=== PATIENT | female | born 1955 | race Two or more races ===

== ENCOUNTER 2023-02-08 07:59 | Outpatient (CLI) | payer OTHER | END 2023-02-08 08:00 | disposition home or self-care (01) | LOC: LAB 07:59 | DX: C50.112 Malignant neoplasm of central portion of left female breast (principal) ==

== ENCOUNTER 2023-02-14 07:48 | Outpatient (CLI) | payer OTHER | END 2023-02-14 10:19 | disposition home or self-care (01) | LOC: NUCLEAR 07:48 | DX: C50.112 Malignant neoplasm of central portion of left female breast (principal) ==

== ENCOUNTER 2023-03-20 07:40 | Outpatient (CLI) | payer OTHER | END 2023-03-20 07:41 | disposition home or self-care (01) | LOC: LAB 07:40 | DX: C50.112 Malignant neoplasm of central portion of left female breast (principal); R11.2 Nausea with vomiting, unspecified ==

== ENCOUNTER 2023-04-04 07:21 | Outpatient (CLI) | payer OTHER | END 2023-04-04 07:22 | disposition home or self-care (01) | LOC: LAB 07:21 | DX: C50.112 Malignant neoplasm of central portion of left female breast (principal); R11.2 Nausea with vomiting, unspecified; D70.1 Agranulocytosis secondary to cancer chemotherapy ==

== ENCOUNTER 2023-05-24 07:30 | Outpatient (CLI) | payer OTHER | END 2023-05-24 07:35 | disposition home or self-care (01) | LOC: LAB 07:30 | DX: C50.112 Malignant neoplasm of central portion of left female breast (principal); R11.2 Nausea with vomiting, unspecified; D70.1 Agranulocytosis secondary to cancer chemotherapy ==

== ENCOUNTER 2023-06-07 06:45 | Outpatient (CLI) | payer OTHER | END 2023-06-07 06:49 | disposition home or self-care (01) | LOC: LAB 06:45 | DX: C50.112 Malignant neoplasm of central portion of left female breast (principal); R11.2 Nausea with vomiting, unspecified; D70.1 Agranulocytosis secondary to cancer chemotherapy ==

== ENCOUNTER 2023-06-14 08:42 | Outpatient (CLI) | payer OTHER | END 2023-06-14 08:47 | disposition home or self-care (01) | LOC: SONOGRAMA 08:42 | DX: C50.112 Malignant neoplasm of central portion of left female breast (principal); R11.2 Nausea with vomiting, unspecified; D70.1 Agranulocytosis secondary to cancer chemotherapy ==

== ENCOUNTER 2023-07-18 07:25 | Outpatient (CLI) | payer OTHER ==
[2023-07-18 08:26] LABS: HEMATOCRIT 34.7 % (36.0-45.00); HEMOGLOBIN 11.3 g/dL (12.0-15.00); MEAN CELL VOLUME 92.5 fL (80.00-100.00); MEAN CORPUSCULAR HEMOGLOBIN 30.2 pg (27.00-32.0); MEAN CORPUSCULAR HGB CONC 32.6 g/dl (32.0-36.0); PLATELET COUNT 210 K/uL (150-450); RED BLOOD COUNT 3.75 M/uL (4.00-6.00); RED CELL DISTRIBUTION WIDTH 16.7 % (11.5-14.5)
== END 2023-07-18 07:30 | disposition home or self-care (01) ==
LOC: LAB 07:25
DX: C50.112 Malignant neoplasm of central portion of left female breast (principal); R11.2 Nausea with vomiting, unspecified; D70.1 Agranulocytosis secondary to cancer chemotherapy

== ENCOUNTER → 2023-08-22 07:24 | Outpatient (CLI) | payer OTHER ==
[2023-08-22 08:02] LABS: HEMATOCRIT 37.3 % (36.0-45.00); HEMOGLOBIN 12.2 g/dL (12.0-15.00); MEAN CORPUSCULAR HEMOGLOBIN 29.8 pg (27.00-32.0); MEAN CORPUSCULAR HGB CONC 32.7 g/dl (32.0-36.0); PLATELET COUNT 184 K/uL (150-450); RED CELL DISTRIBUTION WIDTH 15.3 % (11.5-14.5)
== END | disposition home or self-care (01) ==
LOC: LAB 07:24
DX: C50.112 Malignant neoplasm of central portion of left female breast (principal); R11.2 Nausea with vomiting, unspecified; D70.1 Agranulocytosis secondary to cancer chemotherapy

== ENCOUNTER → 2023-10-11 07:42 | Outpatient (CLI) | payer OTHER ==
[2023-10-11 08:50] LABS: HEMATOCRIT 39.8 % (36.0-45.00); HEMOGLOBIN 13.1 g/dL (12.0-15.00); MEAN CELL VOLUME 88.6 fL (80.00-100.00); MEAN CORPUSCULAR HEMOGLOBIN 29.2 pg (27.00-32.0); PLATELET COUNT 150 K/uL (150-450); RED BLOOD COUNT 4.49 M/uL (4.00-6.00); RED CELL DISTRIBUTION WIDTH 14.8 % (11.5-14.5)
== END | disposition home or self-care (01) ==
LOC: LAB 07:42
DX: C50.112 Malignant neoplasm of central portion of left female breast (principal); R11.2 Nausea with vomiting, unspecified; D70.1 Agranulocytosis secondary to cancer chemotherapy

== ENCOUNTER 2023-10-24 07:18 | Emergency (ER) | payer OTHER ==
[~2023-10-24] VITALS: Ht 165.1 cm; Wt 47.2 kg
[2023-10-24] MEDS ORDERED: LEVOTHYROXINE150 MCG PO (07:31)
[2023-10-24] MEDS ORDERED: GABAPENTIN300 M2 PO (07:31)
[2023-10-24] MEDS ORDERED: PERJETA420 MG/14 IV (07:32)
[2023-10-24] MEDS ORDERED: ONDANSETRON4 MG/2 M5 IJ (07:32)
[2023-10-24] MEDS ORDERED: FAMOTIDINE40 MG PO (07:32)
[2023-10-24 09:33] LABS: HEMATOCRIT 44.2 % (36.0-45.00); HEMOGLOBIN 14.6 g/dL (12.0-15.00); MEAN CORPUSCULAR HEMOGLOBIN 29.4 pg (27.00-32.0); PLATELET COUNT 179 K/uL (150-450); RED BLOOD COUNT 4.96 M/uL (4.00-6.00); RED CELL DISTRIBUTION WIDTH 14.9 % (11.5-14.5)
[2023-10-24 10:01] LABS: INR 0.98; PARTIAL THROMBOPLASTIN TIME 28.3 SECONDS (22.0-34.0); PROTHROMBIN TIME 10.3 SECONDS (9.0-11.5)
[2023-10-24 10:10] LABS: URINE APPEARANCE Clear; URINE BILIRRUBIN Negative (NEGATIVE); URINE BLOOD Trace; URINE COLOR Yellow; URINE GLUCOSE Negative (NEGATIVE); URINE LEUKOCYTE Negative; URINE NITRATE Negative; URINE PROTEIN Negative (NEGATIVE); URINE UROBILINOGEN 0.2 E.U./dl
[2023-10-24 10:13] LABS: ALBUMIN 3.9 gm/dL (3.4-5.0); BILIRUBIN TOTAL 0.52 mg/dL (0.3-1.2); CALCIUM 9.6 mg/dL (8.5-10.1); CREATININE SERUM 0.62 mg/dL (0.55-1.02); GFR 95.16; GLOBULINA 4.4 G/DL (2.4-3.5); POTASSIUM 3.89 mEq/L (3.5-5.1); TOTAL PROTEIN 8.3 gm/dL (6.4-8.2)
[2023-10-24 10:14] LABS: URINE BACTERIA 11.3 uL (0.0-1933); URINE RBC 5.3 uL (0.0-20.8)
[2023-10-24 10:17] LABS: URINE EPITHELIAL CELLS 0.1 uL (0.0-38.8); URINE WBC 1.3 uL (0.0-23.2)
== END 2023-10-24 10:40 | disposition home or self-care (01) ==
LOC: ER 07:19
PROVIDERS: General Practice
DX: R10.9 Unspecified abdominal pain (principal); Z88.8 Allergy status to other drugs, medicaments and biological substances; C50.919 Malignant neoplasm of unspecified site of unspecified female breast; E03.9 Hypothyroidism, unspecified; Z85.038 Personal history of other malignant neoplasm of large intestine; R19.7 Diarrhea, unspecified

== ENCOUNTER → 2023-11-09 08:10 | Outpatient (CLI) | payer OTHER ==
[~2023-11-09 08:10] MED LIST: FAMOTIDINE40 MG PO; GABAPENTIN300 M2 PO; LEVOTHYROXINE150 MCG PO; ONDANSETRON4 MG/2 M5 IJ; PERJETA420 MG/14 IV
[2023-11-09 08:45] LABS: HEMATOCRIT 39.9 % (36.0-45.00); HEMOGLOBIN 13.1 g/dL (12.0-15.00); MEAN CELL VOLUME 86.9 fL (80.00-100.00); MEAN CORPUSCULAR HEMOGLOBIN 28.6 pg (27.00-32.0); MEAN CORPUSCULAR HGB CONC 32.9 g/dl (32.0-36.0); PLATELET COUNT 166 K/uL (150-450); RED BLOOD COUNT 4.59 M/uL (4.00-6.00); RED CELL DISTRIBUTION WIDTH 15.7 % (11.5-14.5)
[2023-11-09 09:01] LABS: CALCIUM 9.1 mg/dL (8.5-10.1); CREATININE SERUM 0.53 mg/dL (0.55-1.02); GFR 114.04; POTASSIUM 4.25 mEq/L (3.5-5.1)
== END | disposition home or self-care (01) ==
LOC: LAB 08:10
DX: C50.112 Malignant neoplasm of central portion of left female breast (principal); R11.2 Nausea with vomiting, unspecified; D70.1 Agranulocytosis secondary to cancer chemotherapy

== ENCOUNTER 2023-11-23 08:50 | Outpatient (CLI) | payer OTHER | END 2023-11-23 14:30 | disposition home or self-care (01) | LOC: LAB 08:50 | DX: R19.7 Diarrhea, unspecified (principal) ==

== ENCOUNTER → 2023-12-27 07:26 | Outpatient (CLI) | payer OTHER ==
[2023-12-27 08:29] LABS: HEMATOCRIT 40.9 % (36.0-45.00); HEMOGLOBIN 13.8 g/dL (12.0-15.00); MEAN CELL VOLUME 85.4 fL (80.00-100.00); MEAN CORPUSCULAR HEMOGLOBIN 28.9 pg (27.00-32.0); MEAN CORPUSCULAR HGB CONC 33.9 g/dl (32.0-36.0); RED BLOOD COUNT 4.79 M/uL (4.00-6.00); RED CELL DISTRIBUTION WIDTH 15.3 % (11.5-14.5)
[2023-12-27 08:51] LABS: PLATELET COUNT 76 K/uL (150-450)
[2023-12-27 09:17] LABS: ALBUMIN 3.2 gm/dL (3.4-5.0); BILIRUBIN TOTAL 0.34 mg/dL (0.3-1.2); CALCIUM 8.2 mg/dL (8.5-10.1); CREATININE SERUM 0.6 mg/dL (0.55-1.02); GFR 98.83; GLOBULINA 3.5 G/DL (2.4-3.5); POTASSIUM 3.68 mEq/L (3.5-5.1); TOTAL PROTEIN 6.7 gm/dL (6.4-8.2)
== END | disposition home or self-care (01) ==
LOC: LAB 07:26
DX: C50.112 Malignant neoplasm of central portion of left female breast (principal); R11.2 Nausea with vomiting, unspecified; D70.1 Agranulocytosis secondary to cancer chemotherapy

== ENCOUNTER 2023-12-30 12:37 | Outpatient (CLI) | payer OTHER | END 2023-12-30 23:00 | disposition home or self-care (01) | LOC: LAB 12:37 | DX: C50.112 Malignant neoplasm of central portion of left female breast (principal); R19.7 Diarrhea, unspecified ==

== ENCOUNTER → 2024-04-23 06:55 | Outpatient (CLI) | payer OTHER ==
[2024-04-23 07:46] LABS: HEMATOCRIT 39.1 % (36.0-45.00); HEMOGLOBIN 13.1 g/dL (12.0-15.00); MEAN CORPUSCULAR HEMOGLOBIN 29.4 pg (27.00-32.0); MEAN CORPUSCULAR HGB CONC 33.4 g/dl (32.0-36.0); PLATELET COUNT 168 K/uL (150-450); RED BLOOD COUNT 4.45 M/uL (4.00-6.00)
== END | disposition home or self-care (01) ==
LOC: LAB 06:55
DX: C50.112 Malignant neoplasm of central portion of left female breast (principal)

== ENCOUNTER 2024-05-20 07:20 | Outpatient (CLI) | payer OTHER ==
[2024-05-20 07:54] LABS: HEMATOCRIT 39.4 % (36.0-45.00); MEAN CELL VOLUME 88.7 fL (80.00-100.00); MEAN CORPUSCULAR HEMOGLOBIN 29.3 pg (27.00-32.0); MEAN CORPUSCULAR HGB CONC 33.1 g/dl (32.0-36.0); RED BLOOD COUNT 4.44 M/uL (4.00-6.00); RED CELL DISTRIBUTION WIDTH 14.8 % (11.5-14.5)
[2024-05-20 07:59] LABS: PLATELET COUNT 109 K/uL (150-450)
[2024-05-20 09:45] LABS: FREE TRIODOTIRONINE 1.71 pg/ml (2.18-3.98); T4 FREE 1.19 NG/ML (0.76-1.46); TSH 1.35 uIU/mL (0.358-3.74)
== END 2024-05-20 07:34 | disposition home or self-care (01) ==
LOC: LAB 07:20
DX: C50.112 Malignant neoplasm of central portion of left female breast (principal)

== ENCOUNTER 2024-07-02 07:07 | Outpatient (CLI) | payer OTHER ==
[2024-07-02 08:00] LABS: HEMOGLOBIN 12.6 g/dL (12.0-15.00); MEAN CELL VOLUME 89.1 fL (80.00-100.00); MEAN CORPUSCULAR HEMOGLOBIN 29.6 pg (27.00-32.0); MEAN CORPUSCULAR HGB CONC 33.2 g/dl (32.0-36.0); PLATELET COUNT 146 K/uL (150-450); RED BLOOD COUNT 4.27 M/uL (4.00-6.00); RED CELL DISTRIBUTION WIDTH 15.6 % (11.5-14.5)
[2024-07-02 09:40] LABS: PLT IN CITRATE 140 K/uL (150-450)
== END 2024-07-02 07:11 | disposition home or self-care (01) ==
LOC: LAB 07:07
DX: C50.112 Malignant neoplasm of central portion of left female breast (principal)

== ENCOUNTER → 2024-10-10 07:21 | Outpatient (CLI) | payer OTHER ==
[2024-10-10 07:59] LABS: HEMATOCRIT 38.6 % (36.0-45.00); MEAN CELL VOLUME 89.4 fL (80.00-100.00); MEAN CORPUSCULAR HEMOGLOBIN 30.2 pg (27.00-32.0); MEAN CORPUSCULAR HGB CONC 33.7 g/dl (32.0-36.0); PLATELET COUNT 149 K/uL (150-450); RED BLOOD COUNT 4.31 M/uL (4.00-6.00); RED CELL DISTRIBUTION WIDTH 14.4 % (11.5-14.5)
[2024-10-10 09:28] LABS: ALBUMIN 3.1 gm/dL (3.4-5.0); BILIRUBIN TOTAL 0.45 mg/dL (0.3-1.2); CALCIUM 8.9 mg/dL (8.5-10.1); CHOL HDL RATIO 1.9 (0-5.0); CREATININE SERUM 0.41 mg/dL (0.55-1.02); FREE TRIODOTIRONINE 1.67 pg/ml (2.18-3.98); GFR 152.92; GLOBULINA 3.4 G/DL (2.4-3.5); POTASSIUM 3.91 mEq/L (3.5-5.1); T4 FREE 1.29 NG/ML (0.76-1.46); TOTAL PROTEIN 6.5 gm/dL (6.4-8.2); TSH 2.63 uIU/mL (0.358-3.74)
== END | disposition home or self-care (01) ==
LOC: LAB 07:21
DX: C50.112 Malignant neoplasm of central portion of left female breast (principal)

== ENCOUNTER → 2024-12-01 | Emergency (ER) | payer OTHER ==
[~2024-12-01] VITALS: Ht 152.4 cm; Wt 49.9 kg
== END | disposition left against medical advice (07) ==
LOC: ER 13:52
DX: S60.011A Contusion of right thumb without damage to nail, initial encounter (principal); W22.8XXA Striking against or struck by other objects, initial encounter; Y93.89 Activity, other specified; Y92.018 Other place in single-family (private) house as the place of occurrence of the external cause; Z88.8 Allergy status to other drugs, medicaments and biological substances

== ENCOUNTER 2024-12-02 15:09 | Outpatient (CLI) | payer OTHER | END 2024-12-02 15:12 | disposition home or self-care (01) | LOC: RAD 15:09 | DX: S69.91XA Unspecified injury of right wrist, hand and finger(s), initial encounter (principal) ==

== ENCOUNTER 2024-12-06 14:17 | Emergency (ER) | payer OTHER ==
[~2024-12-06] VITALS: Ht 167.6 cm; Wt 68.0 kg
== END 2024-12-06 17:11 | disposition home or self-care (01) ==
LOC: ER 14:20
DX: S62.231A Other displaced fracture of base of first metacarpal bone, right hand, initial encounter for closed fracture (principal); X58.XXXA Exposure to other specified factors, initial encounter; Y93.89 Activity, other specified; Y92.89 Other specified places as the place of occurrence of the external cause; Y99.8 Other external cause status; E03.8 Other specified hypothyroidism; Z88.6 Allergy status to analgesic agent

== ENCOUNTER 2024-12-31 06:47 | Outpatient (CLI) | payer OTHER ==
[2024-12-31 07:46] LABS: HEMOGLOBIN 12.9 g/dL (12.0-15.00); MEAN CELL VOLUME 91.1 fL (80.00-100.00); MEAN CORPUSCULAR HEMOGLOBIN 29.4 pg (27.00-32.0); MEAN CORPUSCULAR HGB CONC 32.3 g/dl (32.0-36.0); RED BLOOD COUNT 4.39 M/uL (4.00-6.00); RED CELL DISTRIBUTION WIDTH 14.6 % (11.5-14.5)
[2024-12-31 07:51] LABS: PLATELET COUNT 142 K/uL (150-450)
[2024-12-31 08:30] LABS: CREATININE SERUM 0.46 mg/dL (0.55-1.02); GFR 133.91; POTASSIUM 4.33 mEq/L (3.5-5.1)
== END 2024-12-31 06:57 | disposition home or self-care (01) ==
LOC: LAB 06:47
DX: C50.112 Malignant neoplasm of central portion of left female breast (principal)

== ENCOUNTER 2024-12-31 07:37 | Outpatient (CLI) | payer OTHER | END 2024-12-31 07:39 | disposition home or self-care (01) | LOC: RAD 07:37 | DX: S62.609A Fracture of unspecified phalanx of unspecified finger, initial encounter for closed fracture (principal); M19.049 Primary osteoarthritis, unspecified hand ==

== ENCOUNTER 2025-01-07 07:35 | Outpatient (CLI) | payer OTHER ==
[2025-01-07] MEDS ORDERED: IBANDRONATE SO150 MG PO (11:14)
== END 2025-01-07 07:40 | disposition home or self-care (01) ==
LOC: TOM 07:35
DX: R19.4 Change in bowel habit (principal)

== ENCOUNTER 2025-01-07 10:57 | Inpatient (IN) | payer OTHER ==
[~2025-01-07] VITALS: Ht 152.4 cm; Wt 49.9 kg
[2025-01-07] MEDS ORDERED: IBANDRONATE SO150 MG PO (11:14)
[2025-01-07] MEDS ORDERED: FAMOTIDINE/PF 20 MG/2 ML VIAL ONE (11:38)
[2025-01-07] MEDS ORDERED: PIPERACILLIN/TAZOBACTAM SODIUM 3.375 GM VIAL IV ONE ×3 (11:38→18:50)
[2025-01-07] MEDS ORDERED: FAMOtidine 10 MG/ML (4ML VIAL) IV ONE (11:45)
[2025-01-07 12:03] LABS: HEMATOCRIT 39.9 % (36.0-45.00); HEMOGLOBIN 13.1 g/dL (12.0-15.00); MEAN CELL VOLUME 90.7 fL (80.00-100.00); MEAN CORPUSCULAR HEMOGLOBIN 29.7 pg (27.00-32.0); MEAN CORPUSCULAR HGB CONC 32.8 g/dl (32.0-36.0); PLATELET COUNT 155 K/uL (150-450); RED CELL DISTRIBUTION WIDTH 14.4 % (11.5-14.5)
[2025-01-07 12:09] LABS: URINE APPEARANCE Cloudy; URINE BILIRRUBIN Negative (NEGATIVE); URINE BLOOD Large; URINE COLOR Yellow; URINE GLUCOSE Negative (NEGATIVE); URINE KETONE Negative (NEGATIVE); URINE LEUKOCYTE Moderate; URINE NITRATE Positive; URINE PROTEIN Negative (NEGATIVE); URINE UROBILINOGEN 0.2 E.U./dl
[2025-01-07 12:13] LABS: URINE EPITHELIAL CELLS 20.4 uL (0.0-38.8); URINE RBC 1305.2 uL (0.0-20.8); URINE WBC 153.5 uL (0.0-23.2)
[2025-01-07 12:34] LABS: ALBUMIN 3.1 gm/dL (3.4-5.0); BILIRUBIN TOTAL 0.65 mg/dL (0.3-1.2); CALCIUM 8.5 mg/dL (8.5-10.1); CREATININE SERUM 0.68 mg/dL (0.55-1.02); GFR 85.29; INR 1.02; PARTIAL THROMBOPLASTIN TIME 25.1 SECONDS (22.0-34.0); POTASSIUM 3.28 mEq/L (3.5-5.1); PROTHROMBIN TIME 11.1 SECONDS (9.0-11.5); TOTAL PROTEIN 7.1 gm/dL (6.4-8.2)
[2025-01-07 13:11] LABS: URINE BACTERIA > 9821.5 uL (0.0-1933); URINE CAST 0.44 uL (0.0-1.40)
[2025-01-07] MEDS ORDERED: METRONIDAZOLE/SODIUM CHLORIDE 100 ML IV SCH (18:37)
[2025-01-07] MEDS ORDERED: PIPERACILLIN/TAZOBACTAM SODIUM 3.375 GM in DEXTROSE 5 % IN WATER 100 ML IV SCH (18:37)
[2025-01-07] MEDS ORDERED: FAMOTIDINE/PF 20 MG in 0.9 % SODIUM CHLORIDE 8 ML IV PUSH SCH (18:38)
[2025-01-07] MEDS ORDERED: ONDANSETRON HCL 4 MG in 0.9 % SODIUM CHLORIDE 50 ML IV PRN (18:45)
[2025-01-07] MEDS ORDERED: 0.9 % SODIUM CHLORIDE 1,000 ML IV SCH (18:45)
[2025-01-07] MEDS ORDERED: METRONIDAZOLE/SODIUM CHLORIDE 500 MG/100 ML PIGGYBACK IV ONE (18:50)
[2025-01-07 19:37] LABS: MAGNESIUM 2.1 mg/dL (1.8-2.4); PHOSPHOROUS 2.3 mg/dL (2.5-4.9)
[2025-01-07] MEDS ORDERED: MORPHINE SULFATE 2 MG/ML CARTRIDGE IV SCH (20:00)
[2025-01-07 21:30] VITALS: BP 152/74; O2SAT 97
[2025-01-08 00:24] VITALS: BP 118/72; O2SAT 99
[2025-01-08] MEDS ORDERED: LEVOTHYROXINE SODIUM 150 MCG TABLET PO SCH (06:00)
[2025-01-08 08:00] VITALS: BP 115/68; O2SAT 96
[2025-01-08] MEDS ORDERED: POTASSIUM CHLORIDE 20MEQ/100ML H2O PB IV NR (10:00)
[2025-01-08] MEDS ORDERED: ATORVASTATIN CALCIUM 20 MG TABLET PO NR (11:00)
[2025-01-08] MEDS ORDERED: ENOXAPARIN SODIUM 40 MG/0.4 ML SYRINGE SUBCUTANEO NR (11:00)
[2025-01-08 16:59] LABS: ALBUMIN 2.9 gm/dL (3.4-5.0); BILIRUBIN TOTAL 1.15 mg/dL (0.3-1.2); CALCIUM 8.5 mg/dL (8.5-10.1); CREATININE SERUM 0.48 mg/dL (0.55-1.02); GFR 127.49; GLOBULINA 3.2 G/DL (2.4-3.5); POTASSIUM 3.62 mEq/L (3.5-5.1); TOTAL PROTEIN 6.1 gm/dL (6.4-8.2)
[2025-01-08 17:00] VITALS: BP 123/75; O2SAT 99
[2025-01-08] MEDS ORDERED: AMINO ACIDS 4.25 %/DEXTROSE 5% 1,000 ML PERIFERAL SCH (17:00)
[2025-01-08] MEDS ORDERED: AA 5 % NO.6/DEXTROSE 15 % 1,000 ML CENTRAL SCH (17:00)
[2025-01-08] MEDS ORDERED: NAPH,MB-DB/K PH,MBDB 1 PKT PACKET PO SCH (17:00)
[2025-01-08 21:47] LABS: HEMATOCRIT 38.6 % (36.0-45.00); HEMOGLOBIN 12.8 g/dL (12.0-15.00); MEAN CELL VOLUME 89.5 fL (80.00-100.00); MEAN CORPUSCULAR HEMOGLOBIN 29.6 pg (27.00-32.0); MEAN CORPUSCULAR HGB CONC 33.1 g/dl (32.0-36.0); PLATELET COUNT 157 K/uL (150-450); RED BLOOD COUNT 4.31 M/uL (4.00-6.00); RED CELL DISTRIBUTION WIDTH 14.7 % (11.5-14.5)
[2025-01-08 22:07] LABS: CALCIUM 8.4 mg/dL (8.5-10.1); CREATININE SERUM 0.46 mg/dL (0.55-1.02); GFR 133.91; PHOSPHOROUS 2.5 mg/dL (2.5-4.9); POTASSIUM 3.55 mEq/L (3.5-5.1)
[2025-01-09 00:57] VITALS: BP 123/82; O2SAT 100
[2025-01-09 07:54] LABS: HEMATOCRIT 38.6 % (36.0-45.00); HEMOGLOBIN 12.7 g/dL (12.0-15.00); MEAN CORPUSCULAR HEMOGLOBIN 29.9 pg (27.00-32.0); MEAN CORPUSCULAR HGB CONC 32.9 g/dl (32.0-36.0); PLATELET COUNT 140 K/uL (150-450); RED BLOOD COUNT 4.24 M/uL (4.00-6.00); RED CELL DISTRIBUTION WIDTH 14.8 % (11.5-14.5)
[2025-01-09 08:24] LABS: ob POSITIVE (NEGATIVE)
[2025-01-09] MEDS ORDERED: ENOXAPARIN SODIUM 40 MG/0.4 ML SYRINGE SUBCUTANEO SCH (09:00)
[2025-01-09] MEDS ORDERED: ATORVASTATIN CALCIUM 20 MG TABLET PO SCH (09:00)
[2025-01-09 09:07] LABS: ALBUMIN 2.9 gm/dL (3.4-5.0); BILIRUBIN TOTAL 1.02 mg/dL (0.3-1.2); CALCIUM 8.5 mg/dL (8.5-10.1); CREATININE SERUM 0.52 mg/dL (0.55-1.02); GFR 116.24; GLOBULINA 3.1 G/DL (2.4-3.5); POTASSIUM 3.72 mEq/L (3.5-5.1)
[2025-01-09 11:15] VITALS: BP 98/60; O2SAT 95
[2025-01-09 16:00] VITALS: BP 125/68; O2SAT 95
[2025-01-10 00:32] VITALS: BP 93/57; O2SAT 100
[2025-01-10 08:00] VITALS: BP 132/74; O2SAT 100
[2025-01-10 09:31] LABS: HEMATOCRIT 35.9 % (36.0-45.00); HEMOGLOBIN 11.8 g/dL (12.0-15.00); MEAN CELL VOLUME 90.9 fL (80.00-100.00); MEAN CORPUSCULAR HEMOGLOBIN 29.9 pg (27.00-32.0); MEAN CORPUSCULAR HGB CONC 32.9 g/dl (32.0-36.0); PLATELET COUNT 131 K/uL (150-450); RED BLOOD COUNT 3.95 M/uL (4.00-6.00); RED CELL DISTRIBUTION WIDTH 14.4 % (11.5-14.5)
[2025-01-10 09:57] LABS: ALBUMIN 2.5 gm/dL (3.4-5.0); BILIRUBIN TOTAL 0.64 mg/dL (0.3-1.2); CREATININE SERUM 0.39 mg/dL (0.55-1.02); GFR 162.01; GLOBULINA 2.9 G/DL (2.4-3.5); POTASSIUM 3.68 mEq/L (3.5-5.1); TOTAL PROTEIN 5.4 gm/dL (6.4-8.2)
[2025-01-10 15:00] VITALS: BP 131/77; O2SAT 100
[2025-01-11 00:38] VITALS: BP 103/62; O2SAT 100
[2025-01-11 07:47] LABS: HEMATOCRIT 35.9 % (36.0-45.00); HEMOGLOBIN 11.9 g/dL (12.0-15.00); MEAN CELL VOLUME 90.5 fL (80.00-100.00); MEAN CORPUSCULAR HEMOGLOBIN 30.1 pg (27.00-32.0); MEAN CORPUSCULAR HGB CONC 33.3 g/dl (32.0-36.0); PLATELET COUNT 134 K/uL (150-450); RED BLOOD COUNT 3.97 M/uL (4.00-6.00)
[2025-01-11 08:26] LABS: ALBUMIN 2.5 gm/dL (3.4-5.0); BILIRUBIN TOTAL 0.53 mg/dL (0.3-1.2); CALCIUM 8.3 mg/dL (8.5-10.1); CREATININE SERUM 0.42 mg/dL (0.55-1.02); GFR 148.73; GLOBULINA 3.3 G/DL (2.4-3.5); POTASSIUM 3.81 mEq/L (3.5-5.1); TOTAL PROTEIN 5.8 gm/dL (6.4-8.2)
[2025-01-11 08:53] VITALS: BP 146/89; O2SAT 100
[2025-01-11 16:00] VITALS: BP 137/75; O2SAT 96
[2025-01-12 00:10] VITALS: BP 144/64; O2SAT 98
[2025-01-12 07:34] LABS: HEMATOCRIT 33.4 % (36.0-45.00); HEMOGLOBIN 11.1 g/dL (12.0-15.00); MEAN CELL VOLUME 90.1 fL (80.00-100.00); MEAN CORPUSCULAR HGB CONC 33.3 g/dl (32.0-36.0); RED BLOOD COUNT 3.71 M/uL (4.00-6.00); RED CELL DISTRIBUTION WIDTH 13.9 % (11.5-14.5)
[2025-01-12 07:42] LABS: PLATELET COUNT 121 K/uL (150-450)
[2025-01-12 07:50] LABS: ALBUMIN 2.1 gm/dL (3.4-5.0); BILIRUBIN TOTAL 0.31 mg/dL (0.3-1.2); CALCIUM 7.6 mg/dL (8.5-10.1); CREATININE SERUM 0.34 mg/dL (0.55-1.02); GFR 189.8; GLOBULINA 2.5 G/DL (2.4-3.5); TOTAL PROTEIN 4.6 gm/dL (6.4-8.2)
[2025-01-12 08:41] LABS: POTASSIUM 2.94 mEq/L (3.5-5.1)
[2025-01-12 08:47] VITALS: BP 126/80; O2SAT 100
[2025-01-12] MEDS ORDERED: POTASSIUM CHLORIDE IN WATER 100 ML IV NR (12:30)
[2025-01-12] MEDS ORDERED: SODIUM CHLORIDE 0.45 % 1,000 ML IV SCH (12:30)
[2025-01-12] MEDS ORDERED: POTASSIUM CHLORIDE IN WATER 40 MEQ/100 ML PIGGYBAG IV NR (14:45)
[2025-01-12 16:12] VITALS: BP 114/72; O2SAT 100
[2025-01-12] MEDS ORDERED: POTASSIUM CHLORIDE 20MEQ/100ML H2O PB IV SCH (22:10)
[2025-01-12 23:25] LABS: PLATELET COUNT 140 K/uL (150-450)
[2025-01-12 23:38] LABS: PLT IN CITRATE 62 K/uL (150-450)
[2025-01-12 23:57] LABS: COL ADP 94 SECONDS (56-102); COL EPI 139 SECONDS (82-175)
[2025-01-13 00:04] LABS: ALBUMIN 2.5 gm/dL (3.4-5.0); CALCIUM 7.9 mg/dL (8.5-10.1); CREATININE SERUM 0.32 mg/dL (0.55-1.02); GFR 203.56; POTASSIUM 3.02 mEq/L (3.5-5.1)
[2025-01-13 00:58] LABS: PHOSPHOROUS 1.5 mg/dL (2.5-4.9)
[2025-01-13 08:00] VITALS: BP 148/70; O2SAT 97
[2025-01-13 08:40] LABS: HEMATOCRIT 34.8 % (36.0-45.00); HEMOGLOBIN 11.8 g/dL (12.0-15.00); MEAN CELL VOLUME 88.4 fL (80.00-100.00); MEAN CORPUSCULAR HGB CONC 33.9 g/dl (32.0-36.0); PLATELET COUNT 148 K/uL (150-450); RED BLOOD COUNT 3.93 M/uL (4.00-6.00); RED CELL DISTRIBUTION WIDTH 14.1 % (11.5-14.5)
[2025-01-13 09:05] LABS: INR 1.07; PARTIAL THROMBOPLASTIN TIME 26.9 SECONDS (22.0-34.0); PROTHROMBIN TIME 11.6 SECONDS (9.0-11.5)
[2025-01-13 09:56] LABS: ALBUMIN 2.7 gm/dL (3.4-5.0); BILIRUBIN TOTAL 0.45 mg/dL (0.3-1.2); BILIRUBIN,CONJUGATED 0.18 mg/dL (0.0-0.2); BILIRUBIN,UNCONJUGATED 0.27 mg/dL (0.0-0.6); CALCIUM 8.3 mg/dL (8.5-10.1); CHOL HDL RATIO 1.9 (0-5.0); CREATININE SERUM 0.38 mg/dL (0.55-1.02); GFR 166.94; POTASSIUM 3.23 mEq/L (3.5-5.1); TOTAL PROTEIN 5.7 gm/dL (6.4-8.2)
[2025-01-13 10:12] LABS: MAGNESIUM 1.3 mg/dL (1.8-2.4)
[2025-01-13] MEDS ORDERED: MAGNESIUM SULFATE IN WATER 50 ML IV ONE (10:30)
[2025-01-13 12:58] LABS: UREA CLEARANCE 42.7 ML/MIN
[2025-01-13] MEDS ORDERED: ONDANSETRON HCL 2 MG/ML VIAL IV PRN (15:15)
[2025-01-13] MEDS ORDERED: CEFAZOLIN SODIUM 1,000 MG VIAL ONE (15:46)
[2025-01-13] MEDS ORDERED: MAGNESIUM SULFATE IN WATER 4 GM/100 ML PIGGYBACK IV NR (17:00)
[2025-01-13] MEDS ORDERED: CEFAZOLIN SODIUM 1,000 MG VIAL IV ONE (17:00)
[2025-01-13] MEDS ORDERED: SUGAMMADEX SODIUM 200 MG/2 ML VIAL IV ONE (17:26)
[2025-01-13] MEDS ORDERED: MORPHINE SULFATE 4 MG/ML VIAL IV ONE (18:20)
[2025-01-13] MEDS ORDERED: POTASSIUM CHLORIDE IN WATER 100 ML IV SCH (20:00)
[2025-01-14] MEDS ORDERED: POLYETHYLENE GLYCOL 3350 17 GM BLIST.PACK PO SCH (09:00)
[2025-01-14] MEDS ORDERED: MAGNESIUM SULFATE IN WATER 2 GM/50 ML PIGGYBAG IV ONE (10:00)
[2025-01-14] MEDS ORDERED: POTASSIUM CHLORIDE 20MEQ/100ML H2O PB IV SCH (12:00)
[2025-01-14] MEDS ORDERED: POTASSIUM CHLORIDE 10 MEQ CAPSULE PO SCH (20:00)
[2025-01-14] MEDS ORDERED: NAPH,MB-DB/K PH,MBDB 1 PKT PACKET PO SCH (21:00)
[2025-01-15 01:00] VITALS: BP 121/77; O2SAT 100
[2025-01-15 07:07] LABS: HEMATOCRIT 31.9 % (36.0-45.00); HEMOGLOBIN 10.9 g/dL (12.0-15.00); MEAN CELL VOLUME 88.8 fL (80.00-100.00); MEAN CORPUSCULAR HEMOGLOBIN 30.4 pg (27.00-32.0); MEAN CORPUSCULAR HGB CONC 34.2 g/dl (32.0-36.0); RED BLOOD COUNT 3.59 M/uL (4.00-6.00)
[2025-01-15 07:09] LABS: PLATELET COUNT 126 K/uL (150-450)
[2025-01-15 07:35] LABS: ALBUMIN 2.1 gm/dL (3.4-5.0); BILIRUBIN TOTAL 0.32 mg/dL (0.3-1.2); CALCIUM 7.6 mg/dL (8.5-10.1); GFR 237.48; GLOBULINA 2.8 G/DL (2.4-3.5); POTASSIUM 3.03 mEq/L (3.5-5.1); TOTAL PROTEIN 4.9 gm/dL (6.4-8.2)
[2025-01-15 07:55] LABS: CREATININE SERUM 0.28 mg/dL (0.55-1.02)
[2025-01-15 08:00] VITALS: BP 133/77; O2SAT 99
[2025-01-15] MEDS ORDERED: POTASSIUM CHLORIDE 10 MEQ CAPSULE PO SCH (13:00)
[2025-01-15] MEDS ORDERED: PIPERACILLIN/TAZOBACTAM SODIUM 3.375 GM in 0.9 % SODIUM CHLORIDE 100 ML IV SCH (14:00)
[2025-01-15 16:00] VITALS: BP 111/66; O2SAT 95
[2025-01-15] MEDS ORDERED: POLYETHYLENE GLYCOL 3350 17 GM BLIST.PACK PO SCH (17:00)
[2025-01-16 01:19] VITALS: BP 102/64; O2SAT 98
[2025-01-16 07:46] LABS: HEMATOCRIT 32.8 % (36.0-45.00); MEAN CELL VOLUME 90.3 fL (80.00-100.00); MEAN CORPUSCULAR HEMOGLOBIN 30.3 pg (27.00-32.0); MEAN CORPUSCULAR HGB CONC 33.6 g/dl (32.0-36.0); PLATELET COUNT 147 K/uL (150-450); RED BLOOD COUNT 3.63 M/uL (4.00-6.00); RED CELL DISTRIBUTION WIDTH 14.1 % (11.5-14.5)
[2025-01-16 08:11] LABS: ALBUMIN 2.4 gm/dL (3.4-5.0); BILIRUBIN TOTAL 0.32 mg/dL (0.3-1.2); CALCIUM 8.3 mg/dL (8.5-10.1); CREATININE SERUM 0.4 mg/dL (0.55-1.02); GFR 157.34; GLOBULINA 3.4 G/DL (2.4-3.5); POTASSIUM 4.4 mEq/L (3.5-5.1); TOTAL PROTEIN 5.8 gm/dL (6.4-8.2)
[2025-01-16 08:58] VITALS: BP 116/76; O2SAT 98
[2025-01-16 16:36] VITALS: BP 159/83; O2SAT 99
== END 2025-01-16 16:55 | disposition home or self-care (01) | DRG 330 ==
LOC: ER 10:58 → SURH 19:29
PROVIDERS: General Practice; Student in an Organized Health Care Education/Training Program; ADMIT Internal Medicine; ATTEND Internal Medicine
PROC: BW21YZZ Computerized Tomography (CT Scan) of Abdomen and Pelvis using Other Contrast (ICD-10-PCS; 2025-01-07)
PROC: 02HV33Z Insertion of Infusion Device into Superior Vena Cava, Percutaneous Approach (ICD-10-PCS; 2025-01-09)
PROC: BW21YZZ Computerized Tomography (CT Scan) of Abdomen and Pelvis using Other Contrast (ICD-10-PCS; 2025-01-12)
PROC: 0DBP8ZX Excision of Rectum, Via Natural or Artificial Opening Endoscopic, Diagnostic (ICD-10-PCS; 2025-01-13)
PROC: 0D1N4Z4 Bypass Sigmoid Colon to Cutaneous, Percutaneous Endoscopic Approach (ICD-10-PCS; principal; 2025-01-13 16:00)
DX: K63.1 Perforation of intestine (nontraumatic) (principal); K62.6 Ulcer of anus and rectum; N39.0 Urinary tract infection, site not specified; K62.7 Radiation proctitis; E87.6 Hypokalemia; D69.6 Thrombocytopenia, unspecified; K64.8 Other hemorrhoids; E03.9 Hypothyroidism, unspecified; Z85.048 Personal history of other malignant neoplasm of rectum, rectosigmoid junction, and anus

== ENCOUNTER 2025-04-30 09:00 | Inpatient (IN) | payer OTHER ==
[~2025-04-30] VITALS: Ht 154.9 cm; Wt 51.7 kg
[~2025-04-30 09:00] MED LIST changes: +IBANDRONATE SO150 MG PO
[2025-04-30] MEDS ORDERED: TAMOXIFEN CITRA10 MG (09:27)
[2025-04-30 09:36] VITALS: BP 145/79
[2025-04-30 10:09] LABS: INR 0.99
[2025-04-30 10:10] LABS: URINE APPEARANCE Clear; URINE BILIRRUBIN Negative (NEGATIVE); URINE BLOOD Negative; URINE COLOR Yellow; URINE GLUCOSE Negative (NEGATIVE); URINE KETONE Negative (NEGATIVE); URINE LEUKOCYTE Negative; URINE NITRATE Negative; URINE PROTEIN Negative (NEGATIVE); URINE UROBILINOGEN 0.2 E.U./dl
[2025-04-30 10:14] LABS: URINE BACTERIA 8.3 uL (0.0-1933); URINE EPITHELIAL CELLS 3.0 uL (0.0-38.8); URINE RBC 5.1 uL (0.0-20.8); URINE WBC 1.8 uL (0.0-23.2)
[2025-04-30 10:16] LABS: URINE CAST 0.00 uL (0.0-1.40)
[2025-04-30 10:31] LABS: ALT/SGPT 16.0 U/L (12-78); AST/SGOT 15.0 U/L (15-37); BILIRUBIN TOTAL 0.29 mg/dL (0.3-1.2); BUN CREA RATIO 38.0 (7.0-25.0); CREATININE SERUM 0.56 mg/dL (0.55-1.02); GFR 106.41; GLOBULINA 4.0 G/DL (2.4-3.5); GLUCOSE FASTING 90.0 mg/dL (65-100); OSMOLALITY SERUM 287.0 MOSM/KG (275-295)
[2025-04-30 10:41] LABS: BASO % 1.1 % (0.1-1.2); EOS # 0.06 (0.04-0.54); EOS % 1.1 % (0.7-7.0); LYMPH # 2.07 (1.18-3.74); LYMPH % 37.8 % (19.3-53.1); MEAN PLATELET VOLUME 10.40 fl (9.4-12.4); MONO # 0.32 (0.24-0.82); MONO % 5.8 % (4.7-12.5); NEUT # 2.95 (1.56-6.13); NEUT % 53.8 % (34.0-71.1); RED CELL DISTRIBUTION WIDTH 13.9 % (11.6-14.4)
[2025-05-07] MEDS ORDERED: CEFTRIAXONE SODIUM 2,000 MG VIAL IV ONE (10:45)
[2025-05-07] MEDS ORDERED: METRONIDAZOLE/SODIUM CHLORIDE 500 MG/100 ML PIGGYBACK IV ONE (10:45)
[2025-05-07] MEDS ORDERED: OxyCODONE HCL 5 MG TABLET (ROXICODONE) PO PRN (13:00)
[2025-05-07] MEDS ORDERED: SIMETHICONE 125 MG CAPSULE PO SCH (13:00)
[2025-05-07] MEDS ORDERED: MORPHINE SULFATE 4 MG/ML CARTRIDGE IV PRN (13:00)
[2025-05-07] MEDS ORDERED: DEXTROSE 50 % IN WATER 0.5 G/ML VIAL IV PRN (13:00)
[2025-05-07] MEDS ORDERED: HYOSCYAMINE SULFATE 0.125 MG TAB.SUBL SL SCH (13:00)
[2025-05-07] MEDS ORDERED: ONDANSETRON HCL 2 MG/ML VIAL IV PRN (13:00)
[2025-05-07] MEDS ORDERED: RINGERS SOLUTION,LACTATED 1,000 ML IV SCH (13:00)
[2025-05-07] MEDS ORDERED: SUGAMMADEX SODIUM 200 MG/2 ML VIAL IV ONE (13:15)
[2025-05-07] MEDS ORDERED: ACETAMINOPHEN 500 MG GEL..CAP PO SCH (14:00)
[2025-05-07] MEDS ORDERED: MORPHINE SULFATE 4 MG/ML VIAL IV ONE (15:00)
[2025-05-07] MEDS ORDERED: METOCLOPRAMIDE HCL 5 MG/ML VIAL IV SCH (17:00)
[2025-05-07] MEDS ORDERED: CELECOXIB 200 MG CAPSULE PO SCH (17:00)
[2025-05-07] MEDS ORDERED: GABAPENTIN 300 MG CAPSULE PO SCH (17:00)
[2025-05-07 19:35] VITALS: BP 117/66; O2SAT 96
[2025-05-07 20:08] LABS: BASO % 0.2 % (0.1-1.2); EOS # 0.00 (0.04-0.54); EOS % 0.0 % (0.7-7.0); LYMPH # 0.59 (1.18-3.74); LYMPH % 6.8 % (19.3-53.1); MEAN PLATELET VOLUME 9.80 fl (9.4-12.4); MONO # 0.33 (0.24-0.82); MONO % 3.8 % (4.7-12.5); NEUT # 7.72 (1.56-6.13); NEUT % 89.1 % (34.0-71.1); RED CELL DISTRIBUTION WIDTH 13.4 % (11.6-14.4)
[2025-05-07] MEDS ORDERED: FAMOTIDINE/PF 20 MG/2 ML VIAL IV PUSH SCH (21:00)
[2025-05-08 02:15] VITALS: BP 120/69; O2SAT 97
[2025-05-08 06:15] LABS: BASO % 0.2 % (0.1-1.2); EOS # 0.00 (0.04-0.54); EOS % 0.0 % (0.7-7.0); LYMPH # 1.07 (1.18-3.74); LYMPH % 12.4 % (19.3-53.1); MEAN PLATELET VOLUME 10.40 fl (9.4-12.4); MONO # 0.38 (0.24-0.82); MONO % 4.4 % (4.7-12.5); NEUT # 7.14 (1.56-6.13); NEUT % 82.8 % (34.0-71.1); RED CELL DISTRIBUTION WIDTH 13.7 % (11.6-14.4)
[2025-05-08 07:10] LABS: BUN CREA RATIO 20.0 (7.0-25.0); CREATININE SERUM 0.35 mg/dL (0.55-1.02); GFR 183.04; GLUCOSE FASTING 77.0 mg/dL (65-100); OSMOLALITY SERUM 280.0 MOSM/KG (275-295)
[2025-05-08 07:25] VITALS: BP 107/68; O2SAT 97
[2025-05-08] MEDS ORDERED: LACTOBACILLUS ACIDOPHILUS 1 CAP CAP PO SCH (09:00)
[2025-05-08] MEDS ORDERED: LACTULOSE 20 G/30 ML BLIST.PACK PO SCH (09:00)
[2025-05-08 17:00] VITALS: BP 121/75; O2SAT 98
[2025-05-08] MEDS ORDERED: ENOXAPARIN SODIUM 40 MG/0.4 ML SYRINGE SUBCUTANEO SCH (17:00)
[2025-05-09 01:31] VITALS: BP 139/69; O2SAT 97
[2025-05-09 08:12] VITALS: BP 115/74; O2SAT 98
[2025-05-09] MEDS ORDERED: ENOXAPARIN SODIUM 40 MG/0.4 ML SYRINGE SUBCUTANEO SCH (09:00)
== END 2025-05-09 14:01 | disposition home or self-care (01) | DRG 331 ==
LOC: O/R 05-07 05:50 → SURH 05-07 07:00 → SURG 05-07 17:47
PROVIDERS: ADMIT Colon & Rectal Surgery; ATTEND Colon & Rectal Surgery
PROC: 0DBP4ZZ Excision of Rectum, Percutaneous Endoscopic Approach (ICD-10-PCS; 2025-05-07)
PROC: 0WQF4ZZ Repair Abdominal Wall, Percutaneous Endoscopic Approach (ICD-10-PCS; 2025-05-07)
PROC: 0DBE4ZZ Excision of Large Intestine, Percutaneous Endoscopic Approach (ICD-10-PCS; 2025-05-07)
PROC: 0DJD8ZZ Inspection of Lower Intestinal Tract, Via Natural or Artificial Opening Endoscopic (ICD-10-PCS; 2025-05-07)
PROC: 0DTN4ZZ Resection of Sigmoid Colon, Percutaneous Endoscopic Approach (ICD-10-PCS; principal; 2025-05-07 07:00)
DX: K57.20 Diverticulitis of large intestine with perforation and abscess without bleeding (principal); K62.3 Rectal prolapse; N73.6 Female pelvic peritoneal adhesions (postinfective); N99.4 Postprocedural pelvic peritoneal adhesions; K43.2 Incisional hernia without obstruction or gangrene

== ENCOUNTER 2025-05-16 15:27 | Inpatient (IN) | payer OTHER ==
[~2025-05-16] VITALS: Ht 152.4 cm; Wt 49.9 kg
[~2025-05-16 15:27] MED LIST changes: +TAMOXIFEN CITRA10 MG
--- NOTE | 2025-05-16 15:46 | NUR ---
SE RECIBE PTE ALERTA, ORIENTADO X3 Y AMBULANDO. PTE REFIERE OPERACION POR TOUS EL DE NILDA COLORECTAL. PTE REFIERE MALESTAR DESDE EL NILDA Y DOLOR EN ERVIN SABILLON, AL MOMENTO DE TRIAGE AREA SE OBSERVA CON ERITEMA Y CALIENTE AL TACTO. SE MIDEN S/V Y SE UBICA.
[2025-05-16] MEDS ORDERED: 0.9 % SODIUM CHLORIDE 500 ML IV ONE (16:30)
--- NOTE | 2025-05-16 16:39 | NUR ---
SE EDUCA PACIENTE SOBRE EL TX MEDICO Y ESTA REFIERE ENTENDER. SE CANALIZA Y SE COLOCA IVFS. SE GALO MUESTRAS DE LABORATORIOS Y SE ENVIAN. SE ENTREGA ENVASE DE U/A.
[2025-05-16 17:02] LABS: BASO % 0.3 % (0.1-1.2); EOS # 0.01 (0.04-0.54); EOS % 0.1 % (0.7-7.0); LYMPH # 0.53 (1.18-3.74); LYMPH % 3.4 % (19.3-53.1); MEAN PLATELET VOLUME 10.20 fl (9.4-12.4); MONO # 0.12 (0.24-0.82); MONO % 0.8 % (4.7-12.5); NEUT # 14.76 (1.56-6.13); NEUT % 93.5 % (34.0-71.1); RED CELL DISTRIBUTION WIDTH 13.3 % (11.6-14.4)
[2025-05-16 17:31] LABS: LYMPHOCYTE MAN 2.0 %; MONOCYTE MAN 1.0 %; NEUTROPHILS MAN 94.0 %
[2025-05-16 17:39] LABS: ERYTHROCYTE SEDIMENTATION RATE 94 mm/hr (0-30); INR 1.05
[2025-05-16 17:54] LABS: D DIMER 4.17 MG/L
[2025-05-16 18:01] LABS: URINE APPEARANCE Clear; URINE BILIRRUBIN Negative (NEGATIVE); URINE BLOOD Negative; URINE COLOR Dark Yellow; URINE GLUCOSE Negative (NEGATIVE); URINE KETONE Trace (NEGATIVE); URINE LEUKOCYTE Trace; URINE NITRATE Negative; URINE PROTEIN 30 (NEGATIVE); URINE UROBILINOGEN 0.2 E.U./dl
[2025-05-16 18:03] LABS: ALT/SGPT 19.0 U/L (12-78); BILIRUBIN TOTAL 0.3 mg/dL (0.3-1.2); GLOBULINA 4.6 G/DL (2.4-3.5); GLUCOSE FASTING 109.0 mg/dL (65-100); OSMOLALITY SERUM 264.0 MOSM/KG (275-295)
[2025-05-16 18:05] LABS: URINE BACTERIA 249.6 uL (0.0-1933); URINE EPITHELIAL CELLS 165.2 uL (0.0-38.8); URINE RBC 47.0 uL (0.0-20.8); URINE WBC 44.1 uL (0.0-23.2)
[2025-05-16 18:09] LABS: AST/SGOT 40.0 U/L (15-37); CREATININE SERUM 0.66 mg/dL (0.55-1.02); GFR 88.03
[2025-05-16 18:16] LABS: URINE CAST 0.58 uL (0.0-1.40); URINE MUCUS SCANT
[2025-05-16 18:42] LABS: BUN CREA RATIO 24.0 (7.0-25.0)
[2025-05-16] MEDS ORDERED: CEFTRIAXONE SODIUM 1,000 MG VIAL IV ONE (19:15)
[2025-05-16] MEDS ORDERED: ENOXAPARIN SODIUM 60 MG/0.6 ML SYRINGE SUBCUTANEO ONE (19:45)
[2025-05-16] MEDS ORDERED: CEFTRIAXONE SODIUM 1,000 MG VIAL IV SCH (22:03)
[2025-05-16] MEDS ORDERED: ENOXAPARIN SODIUM 40 MG/0.4 ML SYRINGE SUBCUTANEO SCH (22:10)
[2025-05-16] MEDS ORDERED: POTASSIUM CHLORIDE 20MEQ/100ML H2O PB IV ONE (22:15)
[2025-05-16] MEDS ORDERED: 0.9 % SODIUM CHLORIDE 1,000 ML IV SCH (22:15)
[2025-05-16] MEDS ORDERED: MAGNESIUM SULFATE IN WATER 50 ML IV ONE (22:15)
[2025-05-17] VITALS (11 sets, daily range): BP systolic 95–113; BP diastolic 65–88; O2SAT 90–100
[2025-05-17 01:51] LABS: CHOL HDL RATIO 3.3 (0-5.0); HDL 27.0 mg/dl (40-60); LDL 43.0 mg/dl (0-130); VLDL 18.0 (0-39)
[2025-05-17 06:32] LABS: ABG PH 7.494 (7.35-7.45); ABG PO2 90.2 mmHg (80-100); BICARBONATE 19.8 mmol/l (23-25)
[2025-05-17 06:49] LABS: o2 21 %
[2025-05-17 07:44] LABS: ALT/SGPT 18.0 U/L (12-78); AST/SGOT 36.0 U/L (15-37); BILIRUBIN TOTAL 0.31 mg/dL (0.3-1.2); BUN CREA RATIO 40.0 (7.0-25.0); CREATININE SERUM 0.3 mg/dL (0.55-1.02); GFR 218.68; GLOBULINA 3.5 G/DL (2.4-3.5); GLUCOSE FASTING 77.0 mg/dL (65-100); OSMOLALITY SERUM 269.0 MOSM/KG (275-295)
[2025-05-17] MEDS ORDERED: 0.9 % SODIUM CHLORIDE 1,000 ML IV SCH (15:15)
[2025-05-17] MEDS ORDERED: NOREPINEPHRINE BITARTRATE 4 MG in DEXTROSE 5 % IN WATER 250 ML IV SCH (15:30)
[2025-05-17] MEDS ORDERED: METOPROLOL SUCCINATE 25 MG TAB.SR.24H PO SCH (17:00)
[2025-05-17] MEDS ORDERED: VANCOMYCIN HCL 1,000 MG VIAL IV SCH (17:00)
[2025-05-17] MEDS ORDERED: PIPERACILLIN/TAZOBACTAM SODIUM 3.375 GM VIAL IV SCH (18:00)
[2025-05-17 18:37] LABS: BUN CREA RATIO 38.0 (7.0-25.0); CREATININE SERUM 0.4 mg/dL (0.55-1.02); GFR 156.9; GLUCOSE FASTING 86.0 mg/dL (65-100); OSMOLALITY SERUM 274.0 MOSM/KG (275-295)
[2025-05-17 21:35] LABS: FECAL LEUKOCYTES NEGATIVE (NEGATIVE); ob POSITIVE (NEGATIVE)
[2025-05-18] VITALS (7 sets, daily range): BP systolic 95–105; BP diastolic 61–73; O2SAT 97–100
[2025-05-18] MEDS ORDERED: LEVOTHYROXINE SODIUM 150 MCG TABLET PO SCH (06:00)
[2025-05-18] MEDS ORDERED: ZINC OXIDE 30 GM,SILVER SULFADIAZINE 50 GM,NYSTATIN 30 GM TOP SCH (09:37)
[2025-05-18 11:58] LABS: BASO % 0.4 % (0.1-1.2); EOS # 0.03 (0.04-0.54); EOS % 0.4 % (0.7-7.0); LYMPH # 0.25 (1.18-3.74); LYMPH % 3.4 % (19.3-53.1); MEAN PLATELET VOLUME 10.70 fl (9.4-12.4); MONO # 0.10 (0.24-0.82); MONO % 1.4 % (4.7-12.5); NEUT # 6.82 (1.56-6.13); NEUT % 92.6 % (34.0-71.1); RED CELL DISTRIBUTION WIDTH 14.2 % (11.6-14.4)
[2025-05-18 12:28] LABS: ALT/SGPT 15.0 U/L (12-78); AST/SGOT 24.0 U/L (15-37); BILIRUBIN TOTAL 0.46 mg/dL (0.3-1.2); BUN CREA RATIO 29.0 (7.0-25.0); CREATININE SERUM 0.55 mg/dL (0.55-1.02); GFR 108.65; GLOBULINA 4.4 G/DL (2.4-3.5); GLUCOSE FASTING 143.0 mg/dL (65-100); OSMOLALITY SERUM 276.0 MOSM/KG (275-295)
[2025-05-18] MEDS ORDERED: DIATRIZOATE MEGLUMINE, SODIUM 30 ML BOTTLE PO NR (13:15)
[2025-05-18 13:30] LABS: BAND MAN 41.0 %; LYMPHOCYTE MAN 6.0 %; NEUTROPHILS MAN 51.0 %
[2025-05-18] MEDS ORDERED: POTASSIUM CHLORIDE IN WATER 40 MEQ/100 ML PIGGYBAG IV SCH ×2 (13:37→17:00)
[2025-05-18] MEDS ORDERED: LACTOBACILLUS ACIDOPHILUS 1 CAP CAP PO SCH (19:24)
[2025-05-18] MEDS ORDERED: SOD FERRIC GLUC COMPLX/SUCROSE 62.5 MG in 0.9 % SODIUM CHLORIDE 50 ML IV SCH (19:46)
[2025-05-18] MEDS ORDERED: Cyanocobalamin/Mecobalamin 1 TAB.SL SL SCH (19:47)
[2025-05-18] MEDS ORDERED: POTASSIUM CHLORIDE IN WATER 100 ML IV ONE (20:00)
[2025-05-18] MEDS ORDERED: GABAPENTIN 100 MG CAPSULE PO SCH (21:00)
[2025-05-18] MEDS ORDERED: PANTOPRAZOLE SODIUM 40 MG/VIAL VIAL IV SCH (21:00)
[2025-05-19] VITALS (7 sets, daily range): BP systolic 96–110; BP diastolic 64–77; O2SAT 99–100
[2025-05-19] MEDS ORDERED: fentaNYL CITRATE 50 MCG/ML AMPUL IV PUSH ONE (08:15)
[2025-05-19] MEDS ORDERED: MIDAZOLAM HCL 2 MG/2 ML VIAL IV ONE (08:15)
[2025-05-20 03:56] VITALS: BP 110/68; O2SAT 100
[2025-05-20 07:30] VITALS: BP 114/69; O2SAT 100
[2025-05-20 08:18] LABS: COVID-19 AG NEGATIVE (NEGATIVE)
[2025-05-20 09:01] LABS: BASO % 0.3 % (0.1-1.2); EOS # 0.00 (0.04-0.54); EOS % 0.0 % (0.7-7.0); LYMPH # 0.38 (1.18-3.74); LYMPH % 3.6 % (19.3-53.1); MEAN PLATELET VOLUME 11.20 fl (9.4-12.4); MONO # 0.12 (0.24-0.82); MONO % 1.1 % (4.7-12.5); NEUT # 9.85 (1.56-6.13); NEUT % 93.9 % (34.0-71.1); RED CELL DISTRIBUTION WIDTH 14.3 % (11.6-14.4)
[2025-05-20 12:00] VITALS: BP 110/69; O2SAT 100
[2025-05-20 15:48] VITALS: BP 107/75; O2SAT 98
[2025-05-20 16:54] LABS: BUN CREA RATIO 40.0 (7.0-25.0); CHOL HDL RATIO 2.3 (0-5.0); CREATININE SERUM 0.5 mg/dL (0.55-1.02); GFR 121.28; GLUCOSE FASTING 96.0 mg/dL (65-100); HDL 26.0 mg/dl (40-60); LDL 21.0 mg/dl (0-130); OSMOLALITY SERUM 287.0 MOSM/KG (275-295); VLDL 12.0 (0-39)
[2025-05-20] MEDS ORDERED: AA 4.25%/CAL/LYTES/DEXT 5% 1,000 ML PERIFERAL SCH (17:00)
[2025-05-20] MEDS ORDERED: VANCOMYCIN HCL 125 MG/7.5 ML BLIST.PACK PO SCH (18:00)
[2025-05-20 20:00] VITALS: BP 117/66; O2SAT 100
[2025-05-20] MEDS ORDERED: POTASSIUM CHLORIDE IN WATER 100 ML IV NR (20:00)
[2025-05-20] MEDS ORDERED: FAT EMULSIONS 250 ML IV SCH (21:00)
[2025-05-20 23:55] VITALS: BP 117/70; O2SAT 100
[2025-05-21 04:00] VITALS: BP 108/64; O2SAT 100
[2025-05-21 07:00] VITALS: BP 104/64; O2SAT 98
[2025-05-21 07:20] LABS: BASO % 0.3 % (0.1-1.2); EOS # 0.01 (0.04-0.54); EOS % 0.1 % (0.7-7.0); LYMPH # 0.55 (1.18-3.74); LYMPH % 7.9 % (19.3-53.1); MEAN PLATELET VOLUME 10.50 fl (9.4-12.4); MONO # 0.13 (0.24-0.82); MONO % 1.9 % (4.7-12.5); NEUT # 6.15 (1.56-6.13); NEUT % 88.9 % (34.0-71.1); RED CELL DISTRIBUTION WIDTH 14.7 % (11.6-14.4)
[2025-05-21 07:41] LABS: BUN CREA RATIO 46.0 (7.0-25.0); CREATININE SERUM 0.46 mg/dL (0.55-1.02); GFR 133.53; GLUCOSE FASTING 129.0 mg/dL (65-100); OSMOLALITY SERUM 290.0 MOSM/KG (275-295)
[2025-05-21] MEDS ORDERED: VANCOMYCIN HCL 5 MG/ML REDILUIDO IV SCH (09:00)
[2025-05-21] MEDS ORDERED: SILVER SULFADIAZINE 50 GM JAR TOP ONE (09:13)
[2025-05-21] MEDS ORDERED: POTASSIUM CHLORIDE IN WATER 100 ML IV ONE (10:00)
[2025-05-21] MEDS ORDERED: POTASSIUM PHOS,M-BASIC-D-BASIC 15 MM in 0.9 % SODIUM CHLORIDE 250 ML IV NR (10:00)
[2025-05-21 12:00] VITALS: BP 133/76; O2SAT 100
[2025-05-21 15:00] VITALS: BP 124/75; O2SAT 100
[2025-05-21 15:54] VITALS: BP 124/75; O2SAT 97
[2025-05-21] MEDS ORDERED: fentaNYL CITRATE 50 MCG/ML AMPUL IV PUSH ONE (22:00)
[2025-05-21] MEDS ORDERED: MIDAZOLAM HCL 2 MG/2 ML VIAL IV PUSH ONE (22:00)
[2025-05-21 23:37] VITALS: BP 117/74; O2SAT 98
[2025-05-22 04:00] VITALS: BP 124/96; O2SAT 97
[2025-05-22 07:17] VITALS: BP 136/81; O2SAT 100
[2025-05-22 12:00] VITALS: BP 142/83; O2SAT 95
[2025-05-22 15:47] VITALS: BP 138/83; O2SAT 100
[2025-05-22] MEDS ORDERED: METOPROLOL TARTRATE 25 MG TABLET PO SCH (17:00)
[2025-05-22 20:49] VITALS: BP 123/75; O2SAT 98
[2025-05-22 23:44] VITALS: BP 136/78; O2SAT 99
[2025-05-23] VITALS (8 sets, daily range): BP systolic 105–261; BP diastolic 68–240; O2SAT 98–100
[2025-05-23] MEDS ORDERED: VANCOMYCIN HCL 1,000 MG VIAL ONE ×2 (08:39→16:53)
[2025-05-23] MEDS ORDERED: VANCOMYCIN HCL 1,000 MG VIAL IV SCH (09:00)
[2025-05-23 10:41] LABS: BUN CREA RATIO 66.0 (7.0-25.0); GFR 227.4; GLUCOSE FASTING 105.0 mg/dL (65-100); OSMOLALITY SERUM 289.0 MOSM/KG (275-295)
[2025-05-23 10:42] LABS: CREATININE SERUM 0.29 mg/dL (0.55-1.02)
[2025-05-24 03:56] VITALS: BP 142/81; O2SAT 100
[2025-05-24 07:09] VITALS: BP 146/75; O2SAT 98
[2025-05-24] MEDS ORDERED: VANCOMYCIN HCL 1,000 MG VIAL ONE ×2 (08:57→19:50)
[2025-05-24 12:00] VITALS: BP 147/84; O2SAT 100
[2025-05-24] MEDS ORDERED: MEROPENEM 500 MG/VIAL VIAL IV SCH (12:00)
[2025-05-24 15:33] VITALS: BP 134/78; O2SAT 97
[2025-05-24 20:49] VITALS: BP 128/75; O2SAT 100
[2025-05-24 23:32] VITALS: BP 127/82; O2SAT 98
[2025-05-25 04:00] VITALS: BP 130/79; O2SAT 100
[2025-05-25 07:09] VITALS: BP 137/87; O2SAT 98
[2025-05-25 07:26] LABS: BASO % 0.3 % (0.1-1.2); EOS # 0.07 (0.04-0.54); EOS % 1.1 % (0.7-7.0); LYMPH # 0.68 (1.18-3.74); LYMPH % 11.0 % (19.3-53.1); MEAN PLATELET VOLUME 12.10 fl (9.4-12.4); MONO # 0.38 (0.24-0.82); MONO % 6.2 % (4.7-12.5); NEUT # 4.98 (1.56-6.13); NEUT % 80.9 % (34.0-71.1); RED CELL DISTRIBUTION WIDTH 14.2 % (11.6-14.4)
[2025-05-25 07:43] LABS: ALT/SGPT 13.0 U/L (12-78); AST/SGOT 20.0 U/L (15-37); BILIRUBIN TOTAL 0.25 mg/dL (0.3-1.2); BUN CREA RATIO 64.0 (7.0-25.0); GFR 269.88; GLOBULINA 3.2 G/DL (2.4-3.5); GLUCOSE FASTING 111.0 mg/dL (65-100); OSMOLALITY SERUM 283.0 MOSM/KG (275-295)
[2025-05-25 07:44] LABS: CREATININE SERUM 0.25 mg/dL (0.55-1.02)
[2025-05-25] MEDS ORDERED: VANCOMYCIN HCL 1,000 MG VIAL ONE ×2 (08:37→20:25)
[2025-05-25 11:59] VITALS: BP 143/87; O2SAT 100
[2025-05-25 15:25] VITALS: BP 133/78; O2SAT 100
[2025-05-25 20:40] VITALS: BP 129/72; O2SAT 100
[2025-05-25 23:00] VITALS: BP 127/83; O2SAT 100
[2025-05-26 04:05] VITALS: BP 138/82; O2SAT 100
[2025-05-26 07:02] VITALS: BP 141/79; O2SAT 100
[2025-05-26 07:46] LABS: ALT/SGPT 12.0 U/L (12-78); AST/SGOT 19.0 U/L (15-37); BILIRUBIN TOTAL 0.3 mg/dL (0.3-1.2); BILIRUBIN,CONJUGATED 0.12 mg/dL (0.0-0.2); CHOL HDL RATIO 3.6 (0-5.0); GLUCOSE FASTING 106.0 mg/dL (65-100); HDL 29.0 mg/dl (40-60); LDL 35.0 mg/dl (0-130); OSMOLALITY SERUM 282.0 MOSM/KG (275-295); VLDL 41.0 (0-39)
[2025-05-26 07:49] LABS: BUN CREA RATIO 67.0 (7.0-25.0); CREATININE SERUM 0.21 mg/dL (0.55-1.02); GFR 330.03
[2025-05-26 07:52] LABS: INR 1.08
[2025-05-26 08:33] LABS: UREA CLEARANCE 59.3 ML/MIN
[2025-05-26 09:27] LABS: BASO % 0.6 % (0.1-1.2); EOS # 0.05 (0.04-0.54); EOS % 0.7 % (0.7-7.0); LYMPH # 0.62 (1.18-3.74); LYMPH % 9.1 % (19.3-53.1); MEAN PLATELET VOLUME 13.70 fl (9.4-12.4); MONO # 0.47 (0.24-0.82); MONO % 6.9 % (4.7-12.5); NEUT # 5.60 (1.56-6.13); NEUT % 82.1 % (34.0-71.1); RED CELL DISTRIBUTION WIDTH 14.1 % (11.6-14.4)
[2025-05-26] MEDS ORDERED: VANCOMYCIN HCL 1,000 MG VIAL ONE ×2 (09:45→20:30)
[2025-05-26 12:00] VITALS: BP 133/84; O2SAT 100
[2025-05-26 12:18] LABS: BAND MAN 17.0 %; LYMPHOCYTE MAN 14.0 %; MONOCYTE MAN 3.0 %; NEUTROPHILS MAN 66.0 %
[2025-05-26 16:19] VITALS: BP 140/82; O2SAT 100
[2025-05-26] MEDS ORDERED: DIATRIZOATE MEGLUMINE, SODIUM 30 ML BOTTLE PO ONE (17:15)
[2025-05-26 20:23] VITALS: BP 137/82; O2SAT 95
[2025-05-27 00:19] VITALS: BP 131/77; O2SAT 100
[2025-05-27] MEDS ORDERED: VANCOMYCIN HCL 1,000 MG VIAL ONE ×2 (06:26→14:30)
[2025-05-27] MEDS ORDERED: DIATRIZOATE MEGLUMINE, SODIUM 30 ML BOTTLE PO NR (07:00)
[2025-05-27 08:15] VITALS: BP 153/79; O2SAT 95
[2025-05-27 17:00] VITALS: BP 117/67; O2SAT 94
[2025-05-27] MEDS ORDERED: fentaNYL CITRATE 50 MCG/ML AMPUL IV PUSH ONE (17:30)
[2025-05-27] MEDS ORDERED: MIDAZOLAM HCL 2 MG/2 ML VIAL IV PUSH ONE (17:30)
[2025-05-27 17:42] LABS: ABG PH 7.509 (7.35-7.45); ABG PO2 78.8 mmHg (80-100); BICARBONATE 24.1 mmol/l (23-25)
[2025-05-27 17:52] LABS: BASO % 0.6 % (0.1-1.2); EOS # 0.00 (0.04-0.54); EOS % 0.0 % (0.7-7.0); LYMPH # 0.72 (1.18-3.74); LYMPH % 6.8 % (19.3-53.1); MEAN PLATELET VOLUME 12.80 fl (9.4-12.4); MONO # 0.40 (0.24-0.82); MONO % 3.8 % (4.7-12.5); NEUT # 9.22 (1.56-6.13); NEUT % 87.3 % (34.0-71.1); RED CELL DISTRIBUTION WIDTH 14.0 % (11.6-14.4)
[2025-05-27 18:15] LABS: ALT/SGPT 17.0 U/L (12-78); AST/SGOT 24.0 U/L (15-37); BILIRUBIN TOTAL 0.56 mg/dL (0.3-1.2); BUN CREA RATIO 55.0 (7.0-25.0); GFR 227.4; GLOBULINA 3.3 G/DL (2.4-3.5); GLUCOSE FASTING 112.0 mg/dL (65-100); OSMOLALITY SERUM 276.0 MOSM/KG (275-295)
[2025-05-27 18:17] LABS: CREATININE SERUM 0.29 mg/dL (0.55-1.02)
[2025-05-27 18:28] LABS: BAND MAN 22.0 %; BASOPHIL MAN 1.0 %; LYMPHOCYTE MAN 6.0 %; MANUAL PLATELET COUNT 70; MONOCYTE MAN 5.0 %; NEUTROPHILS MAN 66.0 %
[2025-05-27 18:53] LABS: o2 36 %
[2025-05-28 01:46] VITALS: BP 125/73; O2SAT 93
[2025-05-28] MEDS ORDERED: VANCOMYCIN HCL 1,000 MG VIAL ONE ×2 (06:21→14:18)
[2025-05-28 08:00] VITALS: BP 127/81; O2SAT 95
[2025-05-28] MEDS ORDERED: LEVALBUTEROL HCL 0.63 MG/3 ML SOLUTION IH NR (12:00)
[2025-05-28] MEDS ORDERED: ANIDULAFUNGIN 100 MG VIAL IV NR (16:30)
[2025-05-28] MEDS ORDERED: LEVALBUTEROL HCL 0.63 MG/3 ML SOLUTION IH SCH (21:00)
[2025-05-29 01:45] VITALS: BP 128/76; O2SAT 95
[2025-05-29] MEDS ORDERED: VANCOMYCIN HCL 1,000 MG VIAL ONE (06:42)
[2025-05-29 06:45] LABS: BASO % 0.3 % (0.1-1.2); EOS # 0.02 (0.04-0.54); EOS % 0.1 % (0.7-7.0); LYMPH # 0.58 (1.18-3.74); LYMPH % 4.0 % (19.3-53.1); MONO # 0.49 (0.24-0.82); MONO % 3.4 % (4.7-12.5); NEUT # 12.96 (1.56-6.13); NEUT % 90.5 % (34.0-71.1); RED CELL DISTRIBUTION WIDTH 14.1 % (11.6-14.4)
[2025-05-29 07:28] LABS: BUN CREA RATIO 34.0 (7.0-25.0); CREATININE SERUM 0.82 mg/dL (0.55-1.02); GFR 68.53; GLUCOSE FASTING 109.0 mg/dL (65-100); OSMOLALITY SERUM 280.0 MOSM/KG (275-295)
[2025-05-29 07:52] LABS: BAND MAN 8.0 %; LYMPHOCYTE MAN 4.0 %; MONOCYTE MAN 5.0 %; NEUTROPHILS MAN 83.0 %
[2025-05-29 08:00] VITALS: BP 109/64; O2SAT 90
[2025-05-29] MEDS ORDERED: MEROPENEM 500 MG/VIAL VIAL IV SCH (17:00)
[2025-05-29] MEDS ORDERED: ANIDULAFUNGIN 100 MG VIAL IV SCH (17:00)
[2025-05-29 17:27] VITALS: BP 109/63; O2SAT 93
[2025-05-30 01:43] VITALS: BP 98/66; O2SAT 95
[2025-05-30 08:20] VITALS: BP 92/63; O2SAT 91
[2025-05-30 11:57] LABS: FE 38.0 ug/dl (50-170)
[2025-05-30] MEDS ORDERED: LEVALBUTEROL HCL 0.63 MG/3 ML SOLUTION IH SCH (13:00)
[2025-05-30] MEDS ORDERED: NOREPINEPHRINE BITARTRATE 8 MG in DEXTROSE 5 % IN WATER 250 ML IV SCH (14:15)
[2025-05-30] MEDS ORDERED: LORazepam 2 MG/ML VIAL IV PRN (14:30)
[2025-05-30] MEDS ORDERED: PANTOPRAZOLE SODIUM 40 MG/VIAL VIAL IV SCH (15:45)
[2025-05-30] MEDS ORDERED: PANTOPRAZOLE SODIUM 80 MG in 0.9 % SODIUM CHLORIDE 100 ML IV SCH (16:30)
[2025-05-30 16:54] LABS: BASO % 0.5 % (0.1-1.2); EOS # 0.04 (0.04-0.54); EOS % 0.2 % (0.7-7.0); LYMPH # 0.59 (1.18-3.74); LYMPH % 3.4 % (19.3-53.1); MONO # 0.43 (0.24-0.82); MONO % 2.5 % (4.7-12.5); NEUT # 15.54 (1.56-6.13); NEUT % 89.7 % (34.0-71.1); RED CELL DISTRIBUTION WIDTH 14.4 % (11.6-14.4)
[2025-05-30 17:14] LABS: BAND MAN 5.0 %; EOSINOPHIL MAN 1.0 %; LYMPHOCYTE MAN 2.0 %; MONOCYTE MAN 3.0 %; NEUTROPHILS MAN 89.0 %
[2025-05-30 17:19] LABS: ALT/SGPT 12.0 U/L (12-78); AST/SGOT 23.0 U/L (15-37); BILIRUBIN TOTAL 0.92 mg/dL (0.3-1.2); BUN CREA RATIO 35.0 (7.0-25.0); CREATININE SERUM 1.9 mg/dL (0.55-1.02); GFR 25.98; GLOBULINA 3.2 G/DL (2.4-3.5); GLUCOSE FASTING 107.0 mg/dL (65-100); OSMOLALITY SERUM 290.0 MOSM/KG (275-295)
[2025-05-30 17:43] VITALS: BP 110/71; O2SAT 95
[2025-05-30 19:31] VITALS: BP 114/74; O2SAT 94
[2025-05-30 20:52] VITALS: BP 114/78; O2SAT 96
[2025-05-30 21:29] LABS: COL EPI 128 SECONDS (82-175)
[2025-05-30 21:40] LABS: D DIMER 15.47 MG/L; INR 1.15
[2025-05-30 22:42] LABS: ABG PH 7.407 (7.35-7.45); ABG PO2 92.0 mmHg (80-100); BICARBONATE 21.4 mmol/l (23-25); o2 80 %
[2025-05-30 23:17] VITALS: BP 110/75; O2SAT 100
[2025-05-31 04:06] VITALS: BP 85/66; BP 892/69; O2SAT 96
[2025-05-31] MEDS ORDERED: MEROPENEM 500 MG/VIAL VIAL IV SCH (05:00)
[2025-05-31 07:30] VITALS: BP 100/73; O2SAT 98
[2025-05-31 08:01] LABS: BASO % 0.3 % (0.1-1.2); EOS # 0.07 (0.04-0.54); EOS % 0.5 % (0.7-7.0); LYMPH # 0.64 (1.18-3.74); LYMPH % 4.3 % (19.3-53.1); MONO # 0.49 (0.24-0.82); MONO % 3.3 % (4.7-12.5); NEUT # 13.14 (1.56-6.13); NEUT % 87.9 % (34.0-71.1); RED CELL DISTRIBUTION WIDTH 14.6 % (11.6-14.4)
[2025-05-31 08:14] LABS: ALT/SGPT 14.0 U/L (12-78); AST/SGOT 21.0 U/L (15-37); BILIRUBIN TOTAL 0.99 mg/dL (0.3-1.2); BUN CREA RATIO 37.0 (7.0-25.0); CREATININE SERUM 2.18 mg/dL (0.55-1.02); GFR 22.17; GLOBULINA 3.2 G/DL (2.4-3.5); GLUCOSE FASTING 119.0 mg/dL (65-100); OSMOLALITY SERUM 292.0 MOSM/KG (275-295)
[2025-05-31 11:35] LABS: ABG PH 7.407 (7.35-7.45); ABG PO2 118.4 mmHg (80-100); BICARBONATE 20.3 mmol/l (23-25)
[2025-05-31 11:36] LABS: o2 80 %
[2025-05-31 12:00] VITALS: BP 90/52; O2SAT 99
[2025-05-31 15:22] VITALS: BP 105/78; O2SAT 100
[2025-05-31 20:00] VITALS: BP 115/70; O2SAT 100
[2025-05-31 21:11] LABS: BASO % 0.4 % (0.1-1.2); EOS # 0.06 (0.04-0.54); EOS % 0.5 % (0.7-7.0); LYMPH # 0.65 (1.18-3.74); LYMPH % 5.1 % (19.3-53.1); MEAN PLATELET VOLUME 12.90 fl (9.4-12.4); MONO # 0.32 (0.24-0.82); MONO % 2.5 % (4.7-12.5); NEUT # 11.05 (1.56-6.13); NEUT % 86.9 % (34.0-71.1); RED CELL DISTRIBUTION WIDTH 14.4 % (11.6-14.4)
[2025-05-31 23:26] VITALS: BP 115/70; O2SAT 100
[2025-06-01 04:31] VITALS: BP 106/65; O2SAT 100
[2025-06-01] MEDS ORDERED: BUPIVACAINE HCL 30 ML VIAL IJ ONE (10:15)
[2025-06-01] MEDS ORDERED: LIDOCAINE HCL 1%/EPINEPHRINE 20ML VIAL IJ ONE (10:15)
[2025-06-01 10:37] LABS: ABG PH 7.351 (7.35-7.45); ABG PO2 201.0 mmHg (80-100); BICARBONATE 19.0 mmol/l (23-25)
[2025-06-01 11:11] LABS: o2 100 %
[2025-06-01 12:00] VITALS: BP 117/77; O2SAT 100
[2025-06-01 15:06] VITALS: BP 132/76; O2SAT 100
[2025-06-01 20:00] VITALS: BP 133/81; O2SAT 100
[2025-06-01 21:17] LABS: BASO % 0.4 % (0.1-1.2); EOS # 0.09 (0.04-0.54); EOS % 0.9 % (0.7-7.0); LYMPH # 0.69 (1.18-3.74); LYMPH % 6.5 % (19.3-53.1); MONO # 0.28 (0.24-0.82); MONO % 2.6 % (4.7-12.5); NEUT # 8.91 (1.56-6.13); NEUT % 84.3 % (34.0-71.1); RED CELL DISTRIBUTION WIDTH 14.2 % (11.6-14.4)
[2025-06-01 21:40] LABS: ALT/SGPT 14.0 U/L (12-78); AST/SGOT 18.0 U/L (15-37); BILIRUBIN TOTAL 0.76 mg/dL (0.3-1.2); BUN CREA RATIO 39.0 (7.0-25.0); CREATININE SERUM 2.84 mg/dL (0.55-1.02); GFR 16.34; GLOBULINA 3.1 G/DL (2.4-3.5); GLUCOSE FASTING 111.0 mg/dL (65-100); OSMOLALITY SERUM 302.0 MOSM/KG (275-295)
[2025-06-01 21:46] LABS: BAND MAN 8.0 %; LYMPHOCYTE MAN 9.0 %; MONOCYTE MAN 7.0 %; NEUTROPHILS MAN 74.0 %
[2025-06-01 23:11] VITALS: BP 122/72; O2SAT 99
[2025-06-02 04:00] VITALS: BP 114/73; O2SAT 98
[2025-06-02 07:20] VITALS: BP 111/74; O2SAT 98
[2025-06-02 07:34] LABS: BASO % 0.5 % (0.1-1.2); EOS # 0.10 (0.04-0.54); EOS % 0.8 % (0.7-7.0); LYMPH # 0.89 (1.18-3.74); LYMPH % 7.5 % (19.3-53.1); MONO # 0.26 (0.24-0.82); MONO % 2.2 % (4.7-12.5); NEUT # 9.75 (1.56-6.13); NEUT % 81.9 % (34.0-71.1); RED CELL DISTRIBUTION WIDTH 14.2 % (11.6-14.4)
[2025-06-02 07:51] LABS: INR 1.07
[2025-06-02 08:08] LABS: ALT/SGPT 12.0 U/L (12-78); AST/SGOT 21.0 U/L (15-37); BILIRUBIN TOTAL 0.81 mg/dL (0.3-1.2); BILIRUBIN,CONJUGATED 0.24 mg/dL (0.0-0.2); BUN CREA RATIO 38.0 (7.0-25.0); CREATININE SERUM 2.85 mg/dL (0.55-1.02); GFR 16.27; GLOBULINA 3.3 G/DL (2.4-3.5); GLUCOSE FASTING 92.0 mg/dL (65-100); OSMOLALITY SERUM 298.0 MOSM/KG (275-295)
[2025-06-02 08:35] LABS: BAND MAN 40.0 %; EOSINOPHIL MAN 1.0 %; LYMPHOCYTE MAN 9.0 %; METAMYELOCYTE 2.0 %; MONOCYTE MAN 4.0 %; MYELOCYTE 2.0 %; NEUTROPHILS MAN 42.0 %
[2025-06-02] MEDS ORDERED: (FF) Daptomycin 50 MG/ML IV SCH (09:00)
[2025-06-02 10:29] LABS: ABG PH 7.364 (7.35-7.45); ABG PO2 218.9 mmHg (80-100); BICARBONATE 16.6 mmol/l (23-25)
[2025-06-02 10:31] LABS: o2 80 %
[2025-06-02 11:04] LABS: UREA CLEARANCE 1.7 ML/MIN
[2025-06-02 12:00] VITALS: BP 117/73; O2SAT 100
[2025-06-02 14:30] LABS: BASO % 0.3 % (0.1-1.2); EOS # 0.07 (0.04-0.54); EOS % 0.6 % (0.7-7.0); LYMPH # 0.86 (1.18-3.74); LYMPH % 7.4 % (19.3-53.1); MEAN PLATELET VOLUME 12.50 fl (9.4-12.4); MONO # 0.30 (0.24-0.82); MONO % 2.6 % (4.7-12.5); NEUT # 9.38 (1.56-6.13); RED CELL DISTRIBUTION WIDTH 14.1 % (11.6-14.4)
[2025-06-02 15:15] LABS: BAND MAN 29.0 %; EOSINOPHIL MAN 1.0 %; LYMPHOCYTE MAN 1.0 %; MONOCYTE MAN 3.0 %; NEUT % 81.1 % (34.0-71.1); NEUTROPHILS MAN 61.0 %
[2025-06-02] MEDS ORDERED: MORPHINE SULFATE 4 MG/ML CARTRIDGE IV PRN (15:15)
[2025-06-02 15:30] VITALS: BP 124/76; O2SAT 95
[2025-06-02 20:00] VITALS: BP 121/75; O2SAT 100
[2025-06-02 23:22] VITALS: BP 129/74; O2SAT 99
[2025-06-03 04:02] VITALS: BP 121/74; O2SAT 98
[2025-06-03] MEDS ORDERED: FLUCONAZOLE IN NACL,ISO-OSM 400 MG/200 ML PIGGYBAG IV NR (06:30)
[2025-06-03 07:02] VITALS: BP 132/94; O2SAT 99
[2025-06-03 09:39] LABS: BASO % 0.2 % (0.1-1.2); EOS # 0.08 (0.04-0.54); EOS % 0.8 % (0.7-7.0); LYMPH # 0.41 (1.18-3.74); LYMPH % 3.9 % (19.3-53.1); MEAN PLATELET VOLUME 12.10 fl (9.4-12.4); MONO # 0.39 (0.24-0.82); MONO % 3.8 % (4.7-12.5); NEUT # 8.66 (1.56-6.13); NEUT % 83.3 % (34.0-71.1); RED CELL DISTRIBUTION WIDTH 14.2 % (11.6-14.4)
[2025-06-03 11:03] LABS: BAND MAN 40.0 %; EOSINOPHIL MAN 1.0 %; MONOCYTE MAN 4.0 %; NEUTROPHILS MAN 49.0 %
[2025-06-03 11:16] LABS: MANUAL PLATELET COUNT 115
[2025-06-03 12:00] VITALS: O2SAT 100
[2025-06-03 15:31] VITALS: BP 136/78; O2SAT 99
[2025-06-03] MEDS ORDERED: LIDOCAINE HCL 2% ONE (18:23)
[2025-06-03 20:00] VITALS: BP 114/77; O2SAT 98
[2025-06-03 23:05] VITALS: BP 112/79; O2SAT 100
[2025-06-04] VITALS (7 sets, daily range): BP systolic 92–164; BP diastolic 58–89; O2SAT 97–99
[2025-06-04 02:01] LABS: BASO % 0.3 % (0.1-1.2); EOS # 0.04 (0.04-0.54); EOS % 0.4 % (0.7-7.0); LYMPH # 0.39 (1.18-3.74); LYMPH % 3.7 % (19.3-53.1); MEAN PLATELET VOLUME 12.50 fl (9.4-12.4); MONO # 0.25 (0.24-0.82); MONO % 2.4 % (4.7-12.5); NEUT # 9.21 (1.56-6.13); NEUT % 88.1 % (34.0-71.1); RED CELL DISTRIBUTION WIDTH 14.0 % (11.6-14.4)
[2025-06-04 02:51] LABS: BAND MAN 2.0 %; LYMPHOCYTE MAN 2.0 %; MONOCYTE MAN 4.0 %; NEUTROPHILS MAN 92.0 %
[2025-06-04 03:36] LABS: BUN CREA RATIO 41.0 (7.0-25.0); CREATININE SERUM 3.24 mg/dL (0.55-1.02); GFR 14.04; GLUCOSE FASTING 109.0 mg/dL (65-100); OSMOLALITY SERUM 308.0 MOSM/KG (275-295)
[2025-06-04] MEDS ORDERED: NOREPINEPHRINE BITARTRATE 8 MG in DEXTROSE 5 % IN WATER 250 ML IV SCH (05:30)
[2025-06-04] MEDS ORDERED: FLUCONAZOLE IN NACL,ISO-OSM 100 ML IV SCH (09:00)
[2025-06-04] MEDS ORDERED: VANCOMYCIN HCL 125 MG/7.5 ML BLIST.PACK PO SCH (09:00)
[2025-06-04 10:12] LABS: ABG PH 7.387 (7.35-7.45); ABG PO2 80.2 mmHg (80-100); BICARBONATE 16.0 mmol/l (23-25)
[2025-06-04 10:14] LABS: o2 50 %
[2025-06-04 10:59] LABS: ABG PH 7.410 (7.35-7.45); ABG PO2 98.8 mmHg (80-100); BICARBONATE 19.8 mmol/l (23-25)
[2025-06-04 11:00] LABS: o2 50 %
[2025-06-04] MEDS ORDERED: DIATRIZOATE MEGLUMINE, SODIUM 30 ML BOTTLE PO NR (13:00)
[2025-06-04 14:12] LABS: BUN CREA RATIO 37.0 (7.0-25.0); CREATININE SERUM 2.26 mg/dL (0.55-1.02); GFR 21.27; GLUCOSE FASTING 100.0 mg/dL (65-100); OSMOLALITY SERUM 293.0 MOSM/KG (275-295)
[2025-06-04] MEDS ORDERED: ANIDULAFUNGIN 100 MG VIAL IV NR (18:00)
[2025-06-04] MEDS ORDERED: PANTOPRAZOLE SODIUM 40 MG/VIAL VIAL IV SCH (23:45)
[2025-06-05 04:00] VITALS: BP 109/53; O2SAT 95
[2025-06-05] MEDS ORDERED: PROPOFOL 10,000 MCG/ML VIAL ONE (04:57)
[2025-06-05 07:04] VITALS: BP 158/86; O2SAT 98
[2025-06-05] MEDS ORDERED: PANTOPRAZOLE SODIUM 80 MG in 0.9 % SODIUM CHLORIDE 100 ML IV SCH (07:30)
[2025-06-05] MEDS ORDERED: ALBUMIN HUMAN 100 ML VIAL IV STA (11:59)
[2025-06-05 12:00] VITALS: BP 183/65; O2SAT 100
[2025-06-05] MEDS ORDERED: ANIDULAFUNGIN 100 MG VIAL IV SCH (12:00)
[2025-06-05] MEDS ORDERED: hydrALAZINE HCL 20 MG VIAL IV PRN (13:30)
[2025-06-05 14:45] LABS: ABG PH 7.343 (7.35-7.45)
[2025-06-05 14:46] LABS: ABG PO2 302.5 mmHg (80-100); BICARBONATE 17.7 mmol/l (23-25); o2 50 %
[2025-06-05 15:09] VITALS: BP 158/83; O2SAT 100
[2025-06-05 20:24] VITALS: BP 162/77; O2SAT 100
[2025-06-05 23:13] VITALS: BP 163/85; O2SAT 99
[2025-06-06] MEDS ORDERED: ALBUMIN HUMAN 100 ML VIAL IV SCH (05:00)
[2025-06-06 07:27] LABS: ALT/SGPT 13.0 U/L (12-78); AST/SGOT 22.0 U/L (15-37); BILIRUBIN TOTAL 1.08 mg/dL (0.3-1.2); BUN CREA RATIO 39.0 (7.0-25.0); CREATININE SERUM 1.86 mg/dL (0.55-1.02); GFR 26.63; GLOBULINA 3.1 G/DL (2.4-3.5); GLUCOSE FASTING 109.0 mg/dL (65-100); OSMOLALITY SERUM 294.0 MOSM/KG (275-295)
[2025-06-06 07:32] VITALS: BP 97/52; O2SAT 90
[2025-06-06 11:25] LABS: ABG PH 7.528 (7.35-7.45); ABG PO2 137.5 mmHg (80-100); BICARBONATE 22.5 mmol/l (23-25)
[2025-06-06 11:26] LABS: o2 50 %
[2025-06-06 12:00] VITALS: BP 138/82; O2SAT 96
[2025-06-06 14:24] LABS: BASO % 0.1 % (0.1-1.2); EOS # 0.03 (0.04-0.54); EOS % 0.2 % (0.7-7.0); LYMPH # 0.25 (1.18-3.74); LYMPH % 1.6 % (19.3-53.1); MONO # 0.17 (0.24-0.82); MONO % 1.1 % (4.7-12.5); NEUT # 14.44 (1.56-6.13); NEUT % 93.9 % (34.0-71.1); RED CELL DISTRIBUTION WIDTH 13.6 % (11.6-14.4)
[2025-06-06 14:59] LABS: ALT/SGPT 14.0 U/L (12-78); AST/SGOT 18.0 U/L (15-37); BILIRUBIN TOTAL 1.38 mg/dL (0.3-1.2); BUN CREA RATIO 32.0 (7.0-25.0); CREATININE SERUM 1.39 mg/dL (0.55-1.02); GFR 37.27; GLOBULINA 2.8 G/DL (2.4-3.5); GLUCOSE FASTING 115.0 mg/dL (65-100); OSMOLALITY SERUM 288.0 MOSM/KG (275-295)
[2025-06-06 15:01] LABS: BAND MAN 2.0 %; BASOPHIL MAN 1.0 %; EOSINOPHIL MAN 1.0 %; MONOCYTE MAN 2.0 %; NEUTROPHILS MAN 94.0 %
[2025-06-06 15:25] VITALS: BP 138/82; O2SAT 100
[2025-06-06 20:00] VITALS: BP 147/83; O2SAT 100
[2025-06-06 23:08] VITALS: BP 162/86; O2SAT 100
[2025-06-07] VITALS (7 sets, daily range): BP systolic 132–148; BP diastolic 60–89; O2SAT 99–100
[2025-06-07 01:52] LABS: BASO % 0.8 % (0.1-1.2); EOS # 0.02 (0.04-0.54); EOS % 0.1 % (0.7-7.0); LYMPH # 0.28 (1.18-3.74); LYMPH % 1.9 % (19.3-53.1); MEAN PLATELET VOLUME 12.50 fl (9.4-12.4); MONO # 0.11 (0.24-0.82); MONO % 0.7 % (4.7-12.5); NEUT # 14.12 (1.56-6.13); NEUT % 94.3 % (34.0-71.1); RED CELL DISTRIBUTION WIDTH 13.8 % (11.6-14.4)
[2025-06-07 01:54] LABS: BUN CREA RATIO 38.0 (7.0-25.0); CREATININE SERUM 1.59 mg/dL (0.55-1.02); GFR 31.91; GLUCOSE FASTING 110.0 mg/dL (65-100); OSMOLALITY SERUM 293.0 MOSM/KG (275-295)
[2025-06-07 02:06] LABS: LYMPHOCYTE MAN 1.0 %; NEUTROPHILS MAN 99.0 %
[2025-06-07 09:02] LABS: ABG PH 7.469 (7.35-7.45); ABG PO2 136.5 mmHg (80-100)
[2025-06-07 09:03] LABS: BICARBONATE 20.1 mmol/l (23-25); o2 50 %
[2025-06-08 04:03] VITALS: BP 119/58; O2SAT 100
[2025-06-08 07:30] VITALS: BP 136/71; O2SAT 100
[2025-06-08 12:00] VITALS: BP 140/72; O2SAT 100
[2025-06-08 12:11] LABS: BASO % 0.8 % (0.1-1.2); EOS # 0.02 (0.04-0.54); EOS % 0.2 % (0.7-7.0); LYMPH # 0.18 (1.18-3.74); LYMPH % 1.7 % (19.3-53.1); MONO # 0.10 (0.24-0.82); MONO % 0.9 % (4.7-12.5); NEUT # 10.12 (1.56-6.13); NEUT % 95.6 % (34.0-71.1); RED CELL DISTRIBUTION WIDTH 14.2 % (11.6-14.4)
[2025-06-08 12:26] LABS: ABG PH 7.432 (7.35-7.45); ABG PO2 173.9 mmHg (80-100); BICARBONATE 16.2 mmol/l (23-25)
[2025-06-08 12:27] LABS: o2 50 %
[2025-06-08 13:07] LABS: BAND MAN 17.0 %; BASOPHIL MAN 0.0 %; EOSINOPHIL MAN 0.0 %; LYMPHOCYTE MAN 2.0 %; MONOCYTE MAN 1.0 %; NEUTROPHILS MAN 79.0 %
[2025-06-08 15:19] VITALS: BP 140/72; O2SAT 99
[2025-06-08 20:00] VITALS: BP 139/68; O2SAT 100
[2025-06-08 22:31] LABS: BASO % 0.0 % (0.1-1.2); EOS # 0.02 (0.04-0.54); EOS % 0.3 % (0.7-7.0); LYMPH # 0.19 (1.18-3.74); LYMPH % 2.6 % (19.3-53.1); MEAN PLATELET VOLUME 12.60 fl (9.4-12.4); MONO # 0.09 (0.24-0.82); MONO % 1.2 % (4.7-12.5); NEUT # 6.88 (1.56-6.13); RED CELL DISTRIBUTION WIDTH 14.2 % (11.6-14.4)
[2025-06-08 22:44] LABS: NEUT % 94.9 % (34.0-71.1)
[2025-06-08 23:36] VITALS: BP 135/75; O2SAT 99
[2025-06-08 23:47] LABS: LYMPHOCYTE MAN 3.0 %; MONOCYTE MAN 1.0 %; NEUTROPHILS MAN 95.0 %
[2025-06-09] VITALS (14 sets, daily range): BP systolic 80–169; BP diastolic 34–88; O2SAT 94–100
[2025-06-09 07:04] LABS: BASO % 0.7 % (0.1-1.2); EOS # 0.03 (0.04-0.54); EOS % 0.3 % (0.7-7.0); LYMPH # 0.44 (1.18-3.74); LYMPH % 4.6 % (19.3-53.1); MONO # 0.11 (0.24-0.82); MONO % 1.2 % (4.7-12.5); NEUT # 8.69 (1.56-6.13); NEUT % 91.3 % (34.0-71.1); RED CELL DISTRIBUTION WIDTH 14.6 % (11.6-14.4)
[2025-06-09 07:35] LABS: ALT/SGPT 8.0 U/L (12-78); AST/SGOT 18.0 U/L (15-37); BILIRUBIN TOTAL 1.28 mg/dL (0.3-1.2); BILIRUBIN,CONJUGATED 0.65 mg/dL (0.0-0.2); CHOL HDL RATIO 6.0 (0-5.0); CREATININE SERUM 2.71 mg/dL (0.55-1.02); GFR 17.25; GLUCOSE FASTING 100.0 mg/dL (65-100)
[2025-06-09 07:37] LABS: BUN CREA RATIO 41.0 (7.0-25.0); HDL 12.0 mg/dl (40-60); LDL 3.0 mg/dl (0-130); OSMOLALITY SERUM 311.0 MOSM/KG (275-295); VLDL 56.0 (0-39)
[2025-06-09 07:41] LABS: UREA CLEARANCE 1.9 ML/MIN
[2025-06-09 07:52] LABS: INR 1.15
[2025-06-09 09:33] LABS: ABG PH 7.150 (7.35-7.45); ABG PO2 187.4 mmHg (80-100)
[2025-06-09 09:34] LABS: BICARBONATE 18.9 mmol/l (23-25); o2 50 %
[2025-06-09] MEDS ORDERED: SOD FERRIC GLUC COMPLX/SUCROSE 62.5 MG/5 ML AMPUL IV SCH (12:00)
[2025-06-09] MEDS ORDERED: EPOETIN ALFA-EPBX 10,000 UNIT/ML VIAL (Retacrit) SUBCUTANEO SCH (12:00)
[2025-06-09 16:32] LABS: BASO % 0.3 % (0.1-1.2); EOS # 0.05 (0.04-0.54); EOS % 0.7 % (0.7-7.0); LYMPH # 0.28 (1.18-3.74); LYMPH % 3.8 % (19.3-53.1); MONO # 0.10 (0.24-0.82); MONO % 1.4 % (4.7-12.5); NEUT # 6.84 (1.56-6.13); NEUT % 92.3 % (34.0-71.1); RED CELL DISTRIBUTION WIDTH 14.4 % (11.6-14.4)
[2025-06-09 16:57] LABS: BUN CREA RATIO 35.0 (7.0-25.0); CREATININE SERUM 1.71 mg/dL (0.55-1.02); GFR 29.34; GLUCOSE FASTING 116.0 mg/dL (65-100); OSMOLALITY SERUM 290.0 MOSM/KG (275-295); PHOSPHOKINASE CREATININE 45.0 U/L (26-192)
[2025-06-09 18:27] LABS: BAND MAN 6.0 %; LYMPHOCYTE MAN 4.0 %; METAMYELOCYTE 1.0 %
[2025-06-09 18:28] LABS: NEUTROPHILS MAN 87.0 %
[2025-06-09 19:46] LABS: ABG PO2 395.0 mmHg (80-100); BICARBONATE 22.1 mmol/l (23-25)
[2025-06-09 20:00] LABS: ABG PH 7.189 (7.35-7.45); o2 100 %
[2025-06-09 20:36] LABS: ABG PO2 95.0 mmHg (80-100); BICARBONATE 21.3 mmol/l (23-25)
[2025-06-09 22:54] LABS: ABG PH 7.179 (7.35-7.45); o2 50 %
[2025-06-10] VITALS (25 sets, daily range): BP systolic 62–128; BP diastolic 37–87; O2SAT 90–100
[2025-06-10 01:32] LABS: BASO % 1.0 % (0.1-1.2); EOS # 0.01 (0.04-0.54); EOS % 0.1 % (0.7-7.0); LYMPH # 0.29 (1.18-3.74); LYMPH % 4.3 % (19.3-53.1); MEAN PLATELET VOLUME 11.30 fl (9.4-12.4); MONO # 0.08 (0.24-0.82); MONO % 1.2 % (4.7-12.5); NEUT # 6.23 (1.56-6.13); NEUT % 91.9 % (34.0-71.1); RED CELL DISTRIBUTION WIDTH 15.0 % (11.6-14.4)
[2025-06-10 02:33] LABS: BAND MAN 6.0 %; LYMPHOCYTE MAN 4.0 %; MONOCYTE MAN 4.0 %; NEUTROPHILS MAN 85.0 %
[2025-06-10 09:37] LABS: ABG PH 7.144 (7.35-7.45)
[2025-06-10 09:38] LABS: ABG PO2 66.8 mmHg (80-100); BICARBONATE 20.4 mmol/l (23-25)
[2025-06-10 09:39] LABS: o2 50 %
[2025-06-10 11:58] LABS: ABG PH 7.158 (7.35-7.45)
[2025-06-10 11:59] LABS: ABG PO2 93.8 mmHg (80-100); BICARBONATE 17.7 mmol/l (23-25); o2 100 %
[2025-06-10] MEDS ORDERED: SODIUM BICARBONATE 150 MEQ in DEXTROSE 5 % IN WATER 1,000 ML IV SCH ×2 (12:00→12:45)
[2025-06-10] MEDS ORDERED: SODIUM BICARBONATE 1 MEQ/ML DISP.SYRIN 50ML IV ONE (12:00)
[2025-06-10] MEDS ORDERED: PROPOFOL 100 ML IV SCH (12:15)
[2025-06-10] MEDS ORDERED: PROPOFOL IV PUSH ONE (12:30)
[2025-06-10 14:13] LABS: BASO % 0.3 % (0.1-1.2); EOS # 0.03 (0.04-0.54); EOS % 0.5 % (0.7-7.0); LYMPH # 0.28 (1.18-3.74); LYMPH % 4.5 % (19.3-53.1); MEAN PLATELET VOLUME 11.00 fl (9.4-12.4); MONO # 0.09 (0.24-0.82); MONO % 1.5 % (4.7-12.5); NEUT # 5.64 (1.56-6.13); NEUT % 91.6 % (34.0-71.1); RED CELL DISTRIBUTION WIDTH 15.0 % (11.6-14.4)
[2025-06-10 16:12] LABS: BAND MAN 16.0 %; EOSINOPHIL MAN 2.0 %; LYMPHOCYTE MAN 8.0 %; MONOCYTE MAN 1.0 %; NEUTROPHILS MAN 71.0 %
[2025-06-10] MEDS ORDERED: MEROPENEM 500 MG/VIAL VIAL IV SCH (17:00)
[2025-06-10] MEDS ORDERED: MIDAZOLAM HCL 100 MG in 0.9 % SODIUM CHLORIDE 100 ML IV SCH (17:00)
[2025-06-10] MEDS ORDERED: CHLORHEXIDINE GLUCONATE 15ML BRUSH KIT MM SCH (17:00)
[2025-06-10] MEDS ORDERED: POLYVINYL ALCOHOL 15 ML DROPS OP SCH (17:00)
[2025-06-10] MEDS ORDERED: PHENYLEPHRINE HCL 20 MG in 0.9 % SODIUM CHLORIDE 250 ML IV SCH (17:45)
[2025-06-10] MEDS ORDERED: PANTOPRAZOLE SODIUM 40 MG/VIAL VIAL IV SCH (21:00)
[2025-06-10] MEDS ORDERED: 0.9 % SODIUM CHLORIDE 500 ML IV ONE (22:00)
[2025-06-10 22:28] LABS: ABG PH 7.138 (7.35-7.45); ABG PO2 70.2 mmHg (80-100); BICARBONATE 16.9 mmol/l (23-25)
[2025-06-10 22:29] LABS: o2 100 %
[2025-06-10] MEDS ORDERED: VASOPRESSIN 40 UNITS in 0.9 % SODIUM CHLORIDE 100 ML IV SCH ×2 (23:00→23:15)
[2025-06-10] MEDS ORDERED: METHYLPREDNISOLONE SOD SUCC 125 MG VIAL IV ONE (23:15)
[2025-06-11] VITALS: BP 80/55; O2SAT 90
[2025-06-11 01:00] VITALS: BP 80/60; O2SAT 87
[2025-06-11 02:00] VITALS: BP 76/48; O2SAT 82
[2025-06-11 04:00] VITALS: BP 134/60; O2SAT 99
[2025-06-11] MEDS ORDERED: (FF) Daptomycin 50 MG/ML IV SCH ×2 (17:00→21:00)
[2025-06-13] MEDS ORDERED: (FF) Daptomycin 50 MG/ML IV SCH (17:00)
== END 2025-06-11 02:55 | disposition expired | DRG 853 ==
LOC: ER 15:27 → MEDJ 22:05 → ICU 22:05 → MEDJ 22:08 → ICU 05-17 20:30 → SURH 05-26 18:57 → ICU 05-30 20:57
PROVIDERS: Emergency Medicine; General Practice; Internal Medicine; Internal Medicine Hematology & Oncology; Internal Medicine Infectious Disease; Internal Medicine Nephrology; Student in an Organized Health Care Education/Training Program; Surgery; ADMIT Colon & Rectal Surgery; ATTEND Colon & Rectal Surgery
PROC: BW24YZZ Computerized Tomography (CT Scan) of Chest and Abdomen using Other Contrast (ICD-10-PCS; 2025-05-16)
PROC: B24BYZZ Ultrasonography of Heart with Aorta using Other Contrast (ICD-10-PCS; 2025-05-16)
PROC: B54BZZZ Ultrasonography of Right Lower Extremity Veins (ICD-10-PCS; 2025-05-16)
PROC: 4A12X4Z Monitoring of Cardiac Electrical Activity, External Approach (ICD-10-PCS; 2025-05-17)
PROC: BW21YZZ Computerized Tomography (CT Scan) of Abdomen and Pelvis using Other Contrast (ICD-10-PCS; 2025-05-18)
PROC: 0D9670Z Drainage of Stomach with Drainage Device, Via Natural or Artificial Opening (ICD-10-PCS; 2025-05-19)
PROC: 3E0G76Z Introduction of Nutritional Substance into Upper GI, Via Natural or Artificial Opening (ICD-10-PCS; 2025-05-19)
PROC: 30243N1 Transfusion of Nonautologous Red Blood Cells into Central Vein, Percutaneous Approach (ICD-10-PCS; 2025-05-19)
PROC: 02HV33Z Insertion of Infusion Device into Superior Vena Cava, Percutaneous Approach (ICD-10-PCS; 2025-05-20)
PROC: 0W9G30Z Drainage of Peritoneal Cavity with Drainage Device, Percutaneous Approach (ICD-10-PCS; 2025-05-21)
PROC: 0H97XZZ Drainage of Abdomen Skin, External Approach (ICD-10-PCS; 2025-05-27)
PROC: BW21YZZ Computerized Tomography (CT Scan) of Abdomen and Pelvis using Other Contrast (ICD-10-PCS; 2025-05-27)
PROC: BQ40ZZZ Ultrasonography of Right Hip (ICD-10-PCS; 2025-05-27)
PROC: B24BYZZ Ultrasonography of Heart with Aorta using Other Contrast (ICD-10-PCS; 2025-05-31)
PROC: BW21ZZZ Computerized Tomography (CT Scan) of Abdomen and Pelvis (ICD-10-PCS; 2025-05-31)
PROC: 30243R1 Transfusion of Nonautologous Platelets into Central Vein, Percutaneous Approach (ICD-10-PCS; 2025-05-31)
PROC: 0D1L4Z4 Bypass Transverse Colon to Cutaneous, Percutaneous Endoscopic Approach (ICD-10-PCS; principal; 2025-06-01 07:15)
PROC: 02HV33Z Insertion of Infusion Device into Superior Vena Cava, Percutaneous Approach (ICD-10-PCS; 2025-06-03)
PROC: 5A1D70Z Performance of Urinary Filtration, Intermittent, Less than 6 Hours Per Day (ICD-10-PCS; 2025-06-04)
PROC: B020ZZZ Computerized Tomography (CT Scan) of Brain (ICD-10-PCS; 2025-06-04)
PROC: B54MZZZ Ultrasonography of Right Upper Extremity Veins (ICD-10-PCS; 2025-06-04)
PROC: 5A1D70Z Performance of Urinary Filtration, Intermittent, Less than 6 Hours Per Day (ICD-10-PCS; 2025-06-05)
PROC: B44FZZZ Ultrasonography of Right Lower Extremity Arteries (ICD-10-PCS; 2025-06-05)
PROC: 5A1D70Z Performance of Urinary Filtration, Intermittent, Less than 6 Hours Per Day (ICD-10-PCS; 2025-06-06)
PROC: 5A1D70Z Performance of Urinary Filtration, Intermittent, Less than 6 Hours Per Day (ICD-10-PCS; 2025-06-09)
PROC: 5A09457 Assistance with Respiratory Ventilation, 24-96 Consecutive Hours, Continuous Positive Airway Pressure (ICD-10-PCS; 2025-06-10)
PROC: 0BH17EZ Insertion of Endotracheal Airway into Trachea, Via Natural or Artificial Opening (ICD-10-PCS; 2025-06-10)
PROC: 5A1945Z Respiratory Ventilation, 24-96 Consecutive Hours (ICD-10-PCS; 2025-06-10)
DX: A41.9 Sepsis, unspecified organism (principal); G92.8 Other toxic encephalopathy; T80.211A Bloodstream infection due to central venous catheter, initial encounter; I21.4 Non-ST elevation (NSTEMI) myocardial infarction; K65.1 Peritoneal abscess; R65.21 Severe sepsis with septic shock; L03.115 Cellulitis of right lower limb; J90 Pleural effusion, not elsewhere classified; B49 Unspecified mycosis; N17.9 Acute kidney failure, unspecified; I82.621 Acute embolism and thrombosis of deep veins of right upper extremity; I42.9 Cardiomyopathy, unspecified; E87.6 Hypokalemia; R00.2 Palpitations; R06.02 Shortness of breath; B96.89 Other specified bacterial agents as the cause of diseases classified elsewhere; D69.6 Thrombocytopenia, unspecified; N25.89 Other disorders resulting from impaired renal tubular function; R65.20 Severe sepsis without septic shock; D64.9 Anemia, unspecified; I46.9 Cardiac arrest, cause unspecified